=== PATIENT | female | born 1985 | race Caucasian/White ===

== ENCOUNTER 2019-03-05 20:25 | Emergency (ER) | payer BC ==
[2019-03-05] MEDS ORDERED: METHYLPREDNISOLONE 125 MG INJ ONE (21:11)
--- NOTE | 2019-03-05 21:15 | ER ---
Nurse's Notes [facility] Name: Roxy Umaña Age: 33 yrs Sex: Female : 1985 Arrival Date: 03/05/2019 Time: 20:29 Bed 18 Private MD: Diagnosis: Possible uveitis/iritis Presentation: 03/05 20:39 Presenting complaint: Patient states: "I got a sinus infection that went into my eye. I aj1 went to the eye doctor and they gave me steroid eye drops. It got worse so I went back to her and she put me on stronger eye drops and said if it didn't get better by tonight to come to the emergency room" Redness noted to bilateral sclera. Reports drainage from both eyes, blurred vision. Transition of care: patient was not received from another setting of care. Onset of symptoms was March 05, 2019. Risk Assessment: Do you want to hurt yourself or someone else? Patient reports no desire to harm self or others. Initial Sepsis Screen: Does the patient meet any 2 criteria? HR > 90 bpm. No. Patient's initial sepsis screen is negative. Does the patient have a suspected source of infection? Yes: Skin breakdown/wound. Care prior to arrival: None. 20:39 Method Of Arrival: Ambulatory aj1 20:39 Acuity: JULIANNA 3 aj1 Triage Assessment: 20:41 General: Appears in no apparent distress. comfortable, Behavior is calm, cooperative, aj1 appropriate for age. Pain: Complains of pain in right eye and left eye Pain currently is 4 out of 10 on a pain scale. Neuro: Level of Consciousness is awake, alert, obeys commands. Cardiovascular: Patient's skin is warm and dry. Respiratory: Airway is patent Respiratory effort is even, unlabored, Respiratory pattern is regular, symmetrical. 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 - Social history:: Smoking status: Patient/guardian denies using tobacco. - Ebola Screening: : Patient denies travel to an Ebola-affected area in the 21 days before illness onset. - Family history:: not pertinent. - Hospitalizations: : No recent hospitalization is reported. Screenin:06 Abuse screen: Denies threats or abuse. Denies injuries from another. Nutritional cc3 screening: No deficits noted. Tuberculosis screening: No symptoms or risk factors identified. Fall Risk Ambulatory Aid- None/Bed Rest/Nurse Assist (0 pts). Gait- Normal/Bed Rest/Wheelchair (0 pts) Mental Status- Oriented to own ability (0 pts). Assessment: 21:06 General: Appears in no apparent distress. uncomfortable, Behavior is calm, cooperative, cc3 appropriate for age. Pain: Complains of pain in left eye and right eye. Neuro: Level of Consciousness is awake, alert, obeys commands, Oriented to person, place, time, situation, Appropriate for age. Cardiovascular: Denies chest pain, Heart tones S1 S2 present Capillary refill < 3 seconds in bilateral fingers Patient's skin is warm and dry. Respiratory: Airway is patent Respiratory effort is even, unlabored, Respiratory pattern is regular, symmetrical, Breath sounds are clear bilaterally. GI: Abdomen is round non-distended, Bowel sounds present X 4 quads. Abd is soft and non tender X 4 quads. : No signs and/or symptoms were reported regarding the genitourinary system. EENT: Eyes are tearing on left eye and right eye Reports blurred vision in right eye and left eye since yesterday. Derm: Skin is intact, is healthy with good turgor, Skin is pink, warm \\T\\ dry. normal. Musculoskeletal: Circulation, motion, and sensation intact. Range of motion: intact in all extremities. 21:20 Reassessment: Patient appears in no apparent distress at this time. Patient and/or cc3 family updated on plan of care and expected duration. Pain level reassessed. Patient is alert, oriented x 3, equal unlabored respirations, skin warm/dry/pink. Dr. Jiménez discharged the patient home with prescription given. No IV cannula in situ. Patient left ER vitally stable and ambulatory with her . No valuables left in the patient's room. Patient states feeling better. Patient states symptoms have improved. Vital Signs: 20:41 BP 139 / 94; Pulse 88; Resp 18; Temp 98.2; Pulse Ox 96% on R/A; Weight 95.25 kg (R); aj1 Height 5 ft. 6 in. (167.64 cm) (R); Pain 4/10; 21:15 BP 126 / 89; Pulse 81; Resp 18 S; Pulse Ox 97% on R/A; cc3 20:41 Body Mass Index 33.89 (95.25 kg, 167.64 cm) aj1 ED Course: 20:29 Patient arrived in ED. es 20:40 Triage completed. aj1 20:41 Arm band placed on Patient placed in an exam room. aj1 20:48 Srinivasa Jiménez MD is Attending Physician. rn 21:06 Lily Torres is Primary Nurse. cc3 21:06 Patient has correct armband on for positive identification. Bed in low position. Call cc3 light in reach. Side rails up X2. Pulse ox on. NIBP on. 21:20 No provider procedures requiring assistance completed. Patient did not have IV access cc3 during this emergency room visit. Administered Medications: 21:10 Drug: SOLU-Medrol 125 mg Route: IM; Site: right gluteus; cc3 21:20 Follow up: Response: No adverse reaction cc3 Outcome: 21:15 Discharge ordered by . rn 21:20 Discharged to home ambulatory, with family. cc3 21:20 Condition: stable 21:20 Discharge instructions given to patient, family, Instructed on discharge instructions, follow up and referral plans. medication usage, Demonstrated understanding of instructions, follow-up care, medications, Prescriptions given X 1. 21:23 Patient left the ED. cc3 Signatures: Maria Fernanda Palencia RN RN [facility] Viviana Cain Roman, MD MD rn Cordel, Charlene cc3
--- NOTE | 2019-03-05 21:15 | EDPHYS ---
Physician Documentation [facility] Name: Roxy Umaña Age: 33 yrs Sex: Female : 1985 Arrival Date: 03/05/2019 Time: 20:29 Bed 18 Private MD: ED Physician Srinivasa Jiménez HPI: 03/05 21:06 This 33 yrs old Female presents to ER via Ambulatory with complaints of Eye rn Problem. 21:06 The patient is experiencing redness, tearing, The patient sustained None. to both eyes, rn caused by an unknown mechanism. Onset: The symptoms/episode began/occurred 3 day(s) ago. Duration: the symptoms are continuous. Aggravated by blinking, closing eye, rubbing. Associated signs and symptoms: Pertinent negatives: chills, ear ache, fever, headache, runny nose. Patient does not utilize any form of vision correction. Severity of symptoms: At their worst the symptoms were mild in the emergency department the symptoms are unchanged. The patient has not experienced similar symptoms in the past. The patient has been recently seen by a physician:. Reports seen 2 days ago and yesterday by eye doctor, told had internal inflammation, given steroid drops, seen at urgent care and given amoxicillin, reports felt like getting better then woke up from nap feeling face pressure and eyes back to where they were. NO trauma or eye injury, no contacts. Denies fever. Reports had full slit lamp examination and dilation.. 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 - Social history:: Smoking status: Patient/guardian denies using tobacco. - Ebola Screening: : Patient denies travel to an Ebola-affected area in the 21 days before illness onset. - Family history:: not pertinent. - Hospitalizations: : No recent hospitalization is reported. ROS: 21:06 Constitutional: Negative for fever, chills, and weight loss, Eyes: Negative for injury, rn + bilateral red eyes with clear drainage. ENT: Negative for injury, pain, and discharge, Neck: Negative for injury, pain, and swelling, Cardiovascular: Negative for chest pain, palpitations, and edema, Respiratory: Negative for shortness of breath, cough, wheezing, and pleuritic chest pain, Abdomen/GI: Negative for abdominal pain, nausea, vomiting, diarrhea, and constipation, MS/Extremity: Negative for injury and deformity, Skin: Negative for injury, rash, and discoloration, Neuro: Negative for headache, weakness, numbness, tingling, and seizure. Exam: 21:06 Constitutional: This is a well developed, well nourished patient who is awake, alert, rn and in no acute distress. Head/Face: Normocephalic, atraumatic. Eyes: Pupils equal round and reactive to light, extra-ocular motions intact. No pain eith EOM. No periorbital erythema/warmth/swelling. No hyphema, no hypopyon. + erythema of conjunctiva and sclera, clear drainage. ENT: MMM, no oral swelling or lesions. Neck: Trachea midline, no thyromegaly or masses palpated, and no cervical lymphadenopathy. Supple, full range of motion without nuchal rigidity, or vertebral point tenderness. No Meningismus. Skin: Warm, dry with normal turgor. Normal color with no rashes, no lesions, and no evidence of cellulitis. Neuro: Awake and alert, GCS 15. Cranial nerves II-XII grossly intact. Motor strength 5/5 in all extremities. Sensory grossly intact. Vital Signs: 20:41 BP 139 / 94; Pulse 88; Resp 18; Temp 98.2; Pulse Ox 96% on R/A; Weight 95.25 kg (R); aj1 Height 5 ft. 6 in. (167.64 cm) (R); Pain 4/10; 21:15 BP 126 / 89; Pulse 81; Resp 18 S; Pulse Ox 97% on R/A; cc3 20:41 Body Mass Index 33.89 (95.25 kg, 167.64 cm) aj1 MDM: 20:48 Patient medically screened. rn 21:10 Differential diagnosis: Acute iritis of iritis. Data reviewed: vital signs, nurses rn notes, and as a result, I will discharge patient. Counseling: I had a detailed discussion with the patient and/or guardian regarding: the historical points, exam findings, and any diagnostic results supporting the discharge/admit diagnosis, the need for outpatient follow up, to return to the emergency department if symptoms worsen or persist or if there are any questions or concerns that arise at home. Special discussion: I discussed with the patient/guardian in detail that at this point there is no indication for admission to the hospital. It is understood, however, that if the symptoms persist or worsen the patient needs to return immediately for re-evaluation. Based on the history and exam findings, there is no indication for further emergent testing or inpatient evaluation. I discussed with the patient/guardian the need to see the opthamologist for further evaluation of the symptoms. ED course: Has appt on Thursday for repeat exam. Is already on steroid drops, abx. Recommend afrin and will try coarse of oral steroids. . 21:18 ED course: Reports had fluorescein stain at eye doctor as well and told normal.. rn Administered Medications: 21:10 Drug: SOLU-Medrol 125 mg Route: IM; Site: right gluteus; cc3 21:20 Follow up: Response: No adverse reaction cc3 Disposition: 03/05/19 21:15 Discharged to Home. Impression: Possible uveitis/iritis. - Condition is Stable. - Discharge Instructions: Uveitis. - Prescriptions for Medrol (Emmanuel) 4 mg Oral Tablets, Dose Pack - take 1 tablet by ORAL route as directed - follow package instructions; 1 packet. - Medication Reconciliation Form, Thank You Letter, Antibiotic Education, Prescription Opioid Use form. - Follow up: Private Physician; When: As needed; Reason: Recheck today's complaints, Re-evaluation by your physician. - Problem is new. - Symptoms have improved. Signatures: Maria Fernanda Palencia RN RN aj1 Srinivasa Jiménez MD MD rn Cordel, Charlene cc3 Corrections: (The following items were deleted from the chart) 21:23 21:15 03/05/2019 21:15 Discharged to Home. Impression: Possible uveitis/iritis. cc3 Condition is Stable. Forms are Medication Reconciliation Form, Thank You Letter, Antibiotic Education, Prescription Opioid Use. Follow up: Private Physician; When: As needed; Reason: Recheck today's complaints, Re-evaluation by your physician. Problem is new. Symptoms have improved. rn
[2019-03-05 21:52] VITALS: BP 139/94; TEMP 98.2; O2SAT 96
== END 2019-03-05 21:23 | disposition home or self-care (01) ==
LOC: ER 20:25
DX: H57.89 Other specified disorders of eye and adnexa (principal); Z91.048 Other nonmedicinal substance allergy status
CPT/HCPCS: 96372; 99283; J2930

== ENCOUNTER 2020-11-07 20:56 | Emergency (ER) | payer BC, SELFPAY ==
--- OUTSIDE RECORDS SUMMARY | 2020-11-07 20:59 | XMS REPORT | Continuity of Care Document ---
:1985 Author Organization [facility] t Address [address] [place] [address] Dr. Nguyen [address] [place] [id number] Care Team Providers Name Role Phone Unavailable Unavailable Unavailable Problems This patient has no known problems. Allergies, Adverse Reactions, Alerts This patient has no known allergies or adverse reactions. Medications This patient has no known medications. Procedures This patient has no known procedures. Results This patient has no known results.
[2020-11-07] MEDS ORDERED: HYDROCODONE/APAP 7.5/325 MG TAB ONE (22:57)
[2020-11-07] MEDS ORDERED: IBUPROFEN 400 MG TAB ONE (22:57)
--- NOTE | 2020-11-07 23:08 | ER ---
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 Coronavirus screen: Client denies travel out of the [place] in the last 14 days. At this time, the client does not indicate any symptoms associated with coronavirus-19. Ebola Screen: Patient negative for fever greater than or equal to 101.5 degrees Fahrenheit, and additional compatible Ebola Virus Disease symptoms Patient denies exposure to infectious person. Patient denies travel to an Ebola-affected area in the 21 days before illness onset. No symptoms or risks identified at this time. Initial Sepsis Screen: Does the patient meet any 2 criteria? No. Patient's initial sepsis screen is negative. Does the patient have a suspected source of infection? No. Patient's initial sepsis screen is negative. Risk Assessment: Do you want to hurt yourself or someone else? Patient reports no desire to harm self or others. Onset of symptoms was November 07, 2020. 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 Flu vaccine is not up to date. - Social history:: Smoking status: Patient/guardian denies using tobacco, the patient reports quitting approximately 13 years ago. Screenin:10 Abuse screen: Denies threats or abuse. Nutritional screening: No deficits noted. em Tuberculosis screening: No symptoms or risk factors identified. Fall Risk None identified. Assessment: 22:30 General: Appears in no apparent distress. uncomfortable, Behavior is calm, cooperative, em appropriate for age. Pain: Complains of pain in right knee Pain currently is 6 out of 10 on a pain scale. Neuro: Level of Consciousness is awake, alert, obeys commands, Oriented to person, place, time, situation. Cardiovascular: Capillary refill < 3 seconds Patient's skin is warm and dry. Respiratory: Airway is patent Respiratory effort is even, unlabored, Respiratory pattern is regular, symmetrical. Derm: Skin is intact, is healthy with good turgor, Skin is pink, warm \T\ dry. Musculoskeletal: Capillary refill < 3 seconds, Range of motion: limited in right knee Swelling present in right knee. Vital Signs: 21:18 BP 106 / 67; Pulse 84; Resp 16; Temp 97.8(TE); Pulse Ox 99% on R/A; Weight 97.07 kg ca1 (R); Height 5 ft. 6 in. (167.64 cm) (R); Pain 8/10; 21:18 Body Mass Index 34.54 (97.07 kg, 167.64 cm) ca1 ED Course: 20:59 Patient arrived in ED. es 21:19 Triage completed. ca1 21:20 Arm band placed on right wrist. ca1 22:03 Adarsh Rader PA is PHCP. cp 22:03 Srinivasa Jiménez MD is Attending Physician. cp 22:08 Moshe Baig, RN is Primary Nurse. em 22:10 Patient has correct armband on for positive identification. em 22:51 Knee Right 3 View XRAY In Process Unspecified. EDMS 23:06 Juanjo Herrera MD is Referral Physician. cp 23:40 Orthoglass splint: Posterior long leg splint applied on right leg. em 23:51 No provider procedures requiring assistance completed. Patient did not have IV access em during this emergency room visit. Administered Medications: 22:42 Drug: Ibuprofen 800 mg Route: PO; em 23:50 Follow up: Response: No adverse reaction; Marked relief of symptoms; Pain is decreased em 22:42 Drug: Hydrocodone-Acetaminophen (7.5 mg-325 mg) 1 tabs Route: PO; em 23:50 Follow up: Response: No adverse reaction; Marked relief of symptoms; Pain is decreased em Outcome: 23:07 Discharge ordered by . cp 23:52 Discharged to home via wheelchair, with family. em 23:52 Condition: good 23:52 Discharge instructions given to patient, family, Instructed on discharge instructions, follow up and referral plans. medication usage, crutch walking, Demonstrated understanding of instructions, follow-up care, medications, crutch walking, splint care, Prescriptions given X 2. 23:52 Patient left the ED. em Signatures: Dispatcher [employer] Viviana Rivera Edgar, RN RN em Adarsh Rader PA PA cp Acob, Cheryl, RN RN ca1
--- NOTE | 2020-11-07 23:08 | EDPHYS ---
Physician Documentation [facility] Name: Roxy Umaña Age: 35 yrs Sex: Female : 1985 Arrival Date: 11/07/2020 Time: 20:59 Bed 27 Private MD: ED Physician Srinivasa Jiménez HPI: 11/07 22:15 This 35 yrs old Female presents to ER via Wheelchair with complaints of Knee cp Injury. 22:15 The patient presents with an injury, pain, that is acute. cp 22:15 The complaints affect the right knee. Context: resulted from twisting of the extremity, cp while jumping on trampoline, the patient is able to ambulate, with moderate difficulty. Onset: The symptoms/episode began/occurred just prior to arrival. Associated signs and symptoms: Pertinent negatives calf tenderness, numbness. Treatment prior to arrival includes: icing the affected extremity. 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 Flu vaccine is not up to date. - Social history:: Smoking status: Patient/guardian denies using tobacco, the patient reports quitting approximately 13 years ago. ROS: 22:20 MS/extremity: Positive for pain, tenderness, of the right knee, injury, Negative for cp decreased range of motion, deformity. 22:20 Constitutional: Negative for body aches, chills, fever. cp 22:20 Neck: Negative for pain with movement, pain at rest. 22:20 Back: Negative for pain at rest, pain with movement. 22:20 Neuro: Negative for headache, numbness. 22:20 All other systems are negative. Exam: 22:25 Constitutional: The patient appears in no acute distress, alert, awake, non-toxic, well cp developed, well nourished. 22:25 Head/Face: Normocephalic, atraumatic. cp 22:25 Neck: ROM/movement: is normal, is supple, without pain, no range of motions limitations. 22:25 Back: pain, is absent, ROM is normal. 22:25 Musculoskeletal/extremity: Extremities: grossly normal except: noted in the right knee: tenderness, There is no evidence of decreased ROM, deformity, ROM: limited passive range of motion due to pain, in the right knee, Perfusion: the extremity is normally perfused throughout, Sensation intact. Vital Signs: 21:18 BP 106 / 67; Pulse 84; Resp 16; Temp 97.8(TE); Pulse Ox 99% on R/A; Weight 97.07 kg ca1 (R); Height 5 ft. 6 in. (167.64 cm) (R); Pain 8/10; 21:18 Body Mass Index 34.54 (97.07 kg, 167.64 cm) ca1 MDM: 22:07 Patient medically screened. cp 23:00 Differential diagnosis: dislocation, closed fracture, sprain, ligament injury, meniscus cp tear. 23:05 Data reviewed: vital signs, nurses notes, radiologic studies, plain films. Test cp interpretation: by ED physician or midlevel provider: xrays of right knee negative for fracture. Counseling: I had a detailed discussion with the patient and/or guardian regarding: the historical points, exam findings, and any diagnostic results supporting the discharge/admit diagnosis, radiology results, the need for outpatient follow up, for definitive care, a orthopedic surgeon, to return to the emergency department if symptoms worsen or persist or if there are any questions or concerns that arise at home. 11/07 21:21 Order name: Knee Right 3 View XRAY ca1 11/07 22:30 Order name: Knee Immobilizer; Complete Time: 23:53 cp Administered Medications: 22:42 Drug: Ibuprofen 800 mg Route: PO; em 23:50 Follow up: Response: No adverse reaction; Marked relief of symptoms; Pain is decreased em 22:42 Drug: Hydrocodone-Acetaminophen (7.5 mg-325 mg) 1 tabs Route: PO; em 23:50 Follow up: Response: No adverse reaction; Marked relief of symptoms; Pain is decreased em Disposition: 23:15 Chart complete. cp 11/08 06:46 Co-signature as Attending Physician, Srinivasa Jiménez MD. rn Disposition Summary: 11/07/20 23:07 Discharge Ordered Location: Home cp Problem: new cp Symptoms: have improved cp Condition: Stable cp Diagnosis - Sprain of unspecified site of right knee cp Followup: cp - With: Juanjo Herrera MD - When: 2 - 3 days - Reason: Recheck today's complaints Discharge Instructions: - Discharge Summary Sheet cp - How to Use a Knee Immobilizer cp - Knee Sprain, Adult cp Forms: - Medication Reconciliation Form cp - Thank You Letter cp - Antibiotic Education cp - Prescription Opioid Use cp Prescriptions: - Naprosyn 500 mg Oral Tablet - take 1 tablet by ORAL route 2 times per day take with food; 20 tablet; Refills: cp 0, Product Selection Permitted - Tramadol 50 mg Oral Tablet - take 1 tablet by ORAL route every 8 hours as needed; 12 tablet; Refills: 0, cp Product Selection Permitted Signatures: Dispatcher [employer] Moshe Sanabria, RN RN Srinivasa Gómez MD MD rn Page, Corey, PA PA cp Hailey Alicea RN RN ca1
[2020-11-08 00:36] VITALS: BP 106/67; TEMP 97.8; O2SAT 99
--- NOTE | 2020-11-08 07:25 | RAD REPORT ---
EXAM DESCRIPTION: RAD - Knee Right 3 View - 11/07/2020 10:51 pm CLINICAL HISTORY: PAIN COMPARISON: No comparisons FINDINGS: The effusion is present. There is likely a fat fluid level. Question fracture from the pos terolateral aspect of the lateral tibial plateau only seen on the lateral. IMPRESSION: Knee effusion with possible proximal tibial fracture. Consider nonemergent MRI to evalua te for internal derangement as well as confirmation of the fracture.
== END 2020-11-07 23:52 | disposition home or self-care (01) ==
LOC: ER 20:56
DX: S83.91XA Sprain of unspecified site of right knee, initial encounter (principal); X50.1XXA Overexertion from prolonged static or awkward postures, initial encounter; Y93.44 Activity, trampolining; Z88.1 Allergy status to other antibiotic agents; Z91.048 Other nonmedicinal substance allergy status
CPT/HCPCS: 99284

== ENCOUNTER 2023-12-08 00:35 | Inpatient (IN) | payer SELFPAY ==
[2023-12-08] MEDS ORDERED: ONDANSETRON 4 MG/2 ML VIAL ONE (01:24)
[2023-12-08] MEDS ORDERED: FENTANYL CITR 100 MCG/2 ML ONE (01:24)
[2023-12-08] MEDS ORDERED: NA CHLORIDE 0.9% 1,000 ML ONE ×2 (01:25→05:16)
[2023-12-08 01:37] LABS: Specific Gravity 1.011 (1.005-1.030); Sqamous Epithelial <5 /HPF (None Seen); Urine Bacteria <20 /HPF (<20); Urine Bilirubin NEGATIVE (Negative); Urine Blood 2+ (Negative); Urine Clarity Turbid (Clear); Urine Color Colorless (Yellow); Urine Culture Reflex Order REFLEXED; Urine Glucose NEGATIVE (Negative); Urine Ketones NEGATIVE (Negative); Urine Microscopic Reflex YN ORDER UMIC; Urine Mucus Slight /HPF (None Seen); Urine Nitrite NEGATIVE (Negative); Urine Protein TRACE (Negative); Urine Urobilinogen Normal (Normal); Urine WBC 20-50 /HPF (<5); Urine WBC Clump Rare /HPF (None Seen)
[2023-12-08 01:40] LABS: Absolute Eosinophils 0.2 K/uL (0-0.5); Absolute Lymphocytes (CBC) 0.7 K/uL (0.7-4.9); Absolute Monocytes 0.2 K/uL (0.1-1.3); Absolute Neutrophil 12.2 K/uL (1.8-8.0); Basophils % 0.1 % (0-1.3); Eosinophils % 1.2 % (0-4.4); Hematocrit 38.3 % (36.0-45.0); Lymphocytes % 5.4 % (15.3-44.8); MCH 30.7 pg (27.0-35.0); MCHC 33.9 g/dL (32.0-36.0); MCV 90.6 fL (80-100); MPV 9.6 fL (7.6-11.3); Monocytes % 1.2 % (3.3-12.3); Neutrophils % 92.1 % (41.7-73.7); Platelets 260 thou/uL (152-406); RBC Red Blood Cell Count 4.23 M/uL (3.86-4.86); Red Cell Distribution Width 14.2 % (12.1-15.2)
[2023-12-08 01:47] LABS: ALT/SGPT 19 U/L (13-56); Albumin 3.5 g/dL (3.4-5.0); Albumin/Globulin Ratio 0.9 (1.1-1.8); Alkaline Phosphatase 92 U/L (45-117); Anion Gap 6.7 mEq/L (5.0-15.0); BUN Blood Urea Nitrogen 16 mg/dL (7-18); Bicarbonate 28 mEq/L (21-32); Bilirubin Total 1.1 mg/dL (0.2-1.0); Glomerular Filtration Rate 54 ml/min (=/>90); Glucose Level 102 mg/dL (74-106); Potassium 3.7 mEq/L (3.5-5.1); Protein, Total 7.5 g/dL (6.4-8.2); Sodium Level 137 mEq/L (136-145)
[2023-12-08 01:51] LABS: AST/SGOT < 10 U/L (15-37)
[2023-12-08] MEDS ORDERED: MORPHINE 4 MG/ML SYR ONE (03:41)
[2023-12-08] MEDS ORDERED: Levofloxacin 750mg IV 750 MG/150 ML BAG IV ONE (03:42)
--- NOTE | 2023-12-08 03:46 | EDPHYS ---
Physician Documentation [facility] Name: Roxy Umaña Age: 38 yrs Sex: Female : 1985 Arrival Date: 12/08/2023 Time: 00:35 Bed 15 Private MD: ED Physician Miguel Alicea HPI: 12/07 00:51 This 38 yrs old Female presents to ER via Unassigned with complaints of Pain With kb Urination, Fever. 00:51 Pt is a 38 year old female who presents for bilateral flank pain that started 3 days kb ago. States she has had urinary frequency for 4 days. Was seen and diagnosed with a UTI this morning, started on Bactrim. States the pain has gotten worse and now causing nausea. Reports chills. . 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 - Infectious Disease History:: Denies. - Social history:: Smoking status: Reported history of juuling and/or vaping. ROS: 00:51 Constitutional: As per HPI kb Exam: 00:51 Constitutional: This is a well developed, well nourished patient who is awake, alert, kb and in no acute distress. Head/Face: Normocephalic, atraumatic. ENT: Moist Mucous membranes Cardiovascular: Regular rate Respiratory: Respirations even and unlabored. No increased work of breathing. Talking in full sentences Abdomen/GI: Soft, non-tender. No distention Skin: Warm, dry with normal turgor. Normal color. MS/ Extremity: Pulses equal, no cyanosis. Neurovascular intact. Full, normal range of motion. Neuro: Awake and alert, GCS 15, oriented to person, place, time, and situation. Moves all extremities. Normal gait. 00:54 Back: CVA tenderness, that is moderate, is noted bilaterally, kb 04:08 ECG was reviewed by the Attending Physician. rt Vital Signs: 01:00 BP 125 / 73; Pulse 100; Resp 18; Pulse Ox 100% on R/A; al5 01:06 BP 122 / 66; Pulse 104; Resp 18; Temp 99.3; Pulse Ox 100% on R/A; Weight 86.18 kg; al5 Height 5 ft. 7 in. ; Pain 9/10; 01:15 BP 107 / 68; Pulse 101; Resp 18; Pulse Ox 100% ; al5 01:30 BP 116 / 62; Pulse 101; Resp 18; Pulse Ox 99% on R/A; al5 02:00 BP 115 / 49; Pulse 100; Resp 18; Pulse Ox 100% on R/A; al5 02:30 BP 140 / 72; Pulse 98; Resp 18; Pulse Ox 98% on R/A; al5 03:00 BP 126 / 72; Pulse 95; Resp 18; Pulse Ox 96% on R/A; al5 03:30 BP 110 / 67; Pulse 84; Resp 18; Pulse Ox 97% on R/A; al5 04:00 BP 116 / 63; Pulse 86; Resp 18; Pulse Ox 96% on R/A; al5 01:06 Body Mass Index 29.76 (86.18 kg, 170.18 cm) al5 01:06 Pain Scale: Adult al5 MDM: 00:45 Patient medically screened. kb 00:54 Data reviewed: vital signs, nurses notes. kb 01:29 Transition of care: After a detail discussion of the patient's case, care is kb transferred to Miguel Alicea MD. 04:08 Differential diagnosis: UTI. Consideration of Admission/Observation Patient was rt admitted/placed on observation. Management of patient was discussed with the following: Hospitalist: Agrees to admit. I considered the following discharge prescriptions or medication management in the emergency department Medications were administered in the Emergency Department. See MAR. Independent interpretation of the following test(s) in the Emergency Department CT Scan: My interpretation is No ureteral stone seen on my interpretation of CT scan images. 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 Response to treatment: the patient's symptoms have markedly improved after treatment. ED course: Patient met SIRS criteria with leukocytosis, this accounts for delay of blood cultures, IV antibiotics.. 12/07 00:44 Order name: Test, Urine; Complete Time: 02:22 kb 12/07 00:44 Order name: Urinalysis w/ reflexes; Complete Time: 02:22 kb 12/07 00:55 Order name: CBC with Diff; Complete Time: 13:07 kb 12/07 00:55 Order name: CMP; Complete Time: 02:22 kb 12/07 01:47 Order name: Manual Differential; Complete Time: 13:07 EDMS 12/07 01:55 Order name: Urine Culture EDMS 12/07 02:58 Order name: Blood Culture Adult (2) rt 12/07 02:58 Order name: Lactate w/ 2H reflex if indic.; Complete Time: 13:07 rt 12/07 02:58 Order name: Protime (+inr); Complete Time: 13:07 rt 12/07 02:58 Order name: Ptt, Activated; Complete Time: 13:07 rt 12/07 04:17 Order name: Urinalysis w/ reflexes EDMS 12/07 04:17 Order name: CBC with Automated Diff EDMS 12/07 04:17 Order name: CBC with Automated Diff EDMS 12/07 04:17 Order name: Comprehensive Metabolic Panel EDMS 12/07 04:17 Order name: Comprehensive Metabolic Panel EDMS 12/07 13:11 Order name: CBC with Automated Diff EDMS 12/07 13:17 Order name: Basic Metabolic Panel EDMS 12/07 01:23 Order name: CT Abd/Pelvis - Without Contrast kb 12/07 08:51 Order name: US; Complete Time: 13:07 EDMS 12/07 02:58 Order name: EKG; Complete Time: 02:58 rt 12/07 00:55 Order name: IV Saline Lock; Complete Time: 01:38 kb 12/07 00:55 Order name: Labs collected and sent; Complete Time: 01:38 kb 12/07 02:58 Order name: Accucheck; Complete Time: 04:00 rt 12/07 02:58 Order name: Cardiac monitoring; Complete Time: 02:59 rt 12/07 02:58 Order name: EKG - Nurse/Tech; Complete Time: 03:17 rt 12/07 02:58 Order name: IV Saline Lock - Large Bore; Complete Time: 02:59 rt 12/07 02:58 Order name: O2 Per Protocol; Complete Time: 02:59 rt 08/20 02:58 Order name: O2 Sat Monitoring; Complete Time: :59 rt 12/07 02:58 Order name: Vital Signs; Complete Time: :59 rt EC:08 Rate is 91 beats/min. Rhythm is regular, Normal Sinus Rhythm with No ectopy. QRS Raven rt is Normal. NV interval is normal. QRS interval is normal. QT interval is normal. No Q waves. T waves are Normal. No ST changes noted. Interpreted by me. Administered Medications: 01:39 Drug: NS 0.9% IV 1000 ml IV at 1 bolus Per protocol; 1000 mL bolus Route: IV; Rate: 1 al5 bolus; Site: right antecubital; 03:24 Follow up: Response: No adverse reaction; IV Status: Completed infusion; IV Intake: al5 1000ml 01:39 Drug: Ondansetron IVP 4 mg IVP once; over 2 minutes Route: IVP; Site: right antecubital;al5 02:37 Follow up: Response: No adverse reaction; Nausea is decreased al5 01:40 Drug: fentaNYL (PF) IVP 25 mcg IVP once Route: IVP; Site: right antecubital; al5 02:37 Follow up: Response: No adverse reaction; Pain is decreased al5 03:59 Drug: LevaQUIN IVPB 750 mg IVPB once Route: IVPB; Site: right antecubital; al5 05:00 Follow up: Response: No adverse reaction; IV Status: Completed infusion; IV Intake: al5 150ml 03:59 Drug: morphine IVP or IV 4 mg IVP once over 4 mins Route: IVP; Infused Over: 4 mins; al5 Site: right antecubital; 04:50 Follow up: Response: No adverse reaction; Pain is decreased al5 Disposition: 04:08 Co-signature as Attending Physician, Miguel Alicea MD I reviewed the patient's care rt provided by Advanced Practice Provider \T\ agree w/ the diagnosis \T\ care plan. I personally saw the pt \T\ performed a substantive portion of the visit, incldng all aspects of the (History/Exam/Medical Decision Making). Disposition Summary: 12/08/23 03:46 Hospitalization Ordered Notes: Hospitalization Status: Inpatient Admission(12/08/23 03:46) rt Provider: Jag Madrid(12/08/23 03:46) rt Condition: Stable(12/08/23 03:46) rt Problem: new(12/08/23 03:46) rt Symptoms: have improved(12/08/23 03:46) rt Bed/Room Type: Standard(12/08/23 03:46) rt Location: [facility] ER HOLD(12/08/23 03:54) cg Room Assignment: ERHOLD-(12/08/23 03:54) cg Diagnosis - UTI/ Urinary tract infection, site not specified rt - Sepsis, unspecified organism rt Discharge Instructions: - Discharge Summary Sheet al5 Forms: - Medication Reconciliation Form rt - SBAR form rt - Leadership Thank You Letter rt - Family Work Release al5 Signatures: Dispatcher [employer] Kalyn Dunbar FNP-C FNP-Ckb Garcia, Cindy, RN RN cg Kriss Rinaldi PA-C PA-C sb4 Miguel Alicea MD MD rt Minerva Jiménez RN RN al5 Corrections: (The following items were deleted from the chart) 00:54 00:51 Constitutional: This is a well developed, well nourished patient who is awake, kb alert, and in no acute distress. Head/Face: Normocephalic, atraumatic. ENT: Moist Mucous membranes Cardiovascular: Regular rate Respiratory: Respirations even and unlabored. No increased work of breathing. Talking in full sentences Skin: Warm, dry with normal turgor. Normal color. MS/ Extremity: Pulses equal, no cyanosis. Neurovascular intact. Full, normal range of motion. Neuro: Awake and alert, GCS 15, oriented to person, place, time, and situation. Moves all extremities. Normal gait. kb 01:28 00:55 Abdomen Pelvis W Con+CT.RAD.BRZ ordered. EDMS EDMS 02:58 02:58 BLOOD CULTURE*+BA.LAB.BRZ ordered. EDMS EDMS 02:58 02:58 LACTATE+C.LAB.BRZ ordered. EDMS EDMS 02:58 02:58 PROTIME (+INR)+COAG.LAB.BRZ ordered. EDMS EDMS 02:58 02:58 PTT, ACTIVATED+COAG.LAB.BRZ ordered. EDMS EDMS 03:37 03:37 Inpatient Admission rt rt 03:37 03:37 Jag Madrid rt rt 03:37 03:37 Telemetry/MedSurg (Inpatient) rt rt 03:37 03:37 Fair rt rt 03:37 03:37 new rt rt 03:37 03:37 have improved rt rt 03:37 03:37 Standard rt rt 03:37 03:37 rt rt 03:37 03:37 Subsequent non-ST elevation (NSTEMI) myocardial infarction rt rt 03:54 03:46 Telemetry/MedSurg (Inpatient) rt cg 03:54 03:46 rt cg
--- NOTE | 2023-12-08 03:46 | ER ---
Nurse's Notes [facility] Name: Roxy Umaña Age: 38 yrs Sex: Female : 1985 Arrival Date: 12/08/2023 Time: 00:35 Bed 15 Private MD: Diagnosis: UTI/ Urinary tract infection, site not specified;Sepsis, unspecified organism Presentation: 12/07 01:06 Chief complaint: Patient states: c/o back tenderness, painful urination, and urinary al5 frequency since Thursday. went to urgent care on Thursday and was given a shot for the pain and sent home with bactrim. patient has had no relief of symptoms. Coronavirus screen: At this time, the client does not indicate any symptoms associated with coronavirus-19. Ebola Screen: No symptoms or risks identified at this time. Initial Sepsis Screen: Does the patient meet any 2 criteria? HR > 90 bpm. No. Patient's initial sepsis screen is negative. Does the patient have a suspected source of infection? No. Patient's initial sepsis screen is negative. Risk Assessment: Do you want to hurt yourself or someone else? Patient reports no desire to harm self or others. Onset of symptoms was December 04, 2023. 01:06 Method Of Arrival: Ambulatory al5 01:06 Acuity: JULIANNA 3 al5 Triage Assessment: 01:07 General: Appears in no apparent distress. uncomfortable, Behavior is calm, cooperative. al5 Pain: Complains of pain in back Pain currently is 9 out of 10 on a pain scale. EENT: No signs and/or symptoms were reported regarding the EENT system. Neuro: Level of Consciousness is awake, alert, obeys commands, Oriented to person, place, time, situation. Cardiovascular: Patient's skin is warm and dry. Respiratory: Airway is patent Respiratory effort is even, unlabored, Respiratory pattern is regular, symmetrical. GI: Abdomen is flat, non-distended. : Reports pain in bilateral flank(s), since thursday with urination, Pain is 9 out of 10 on a pain scale. urgency. Derm: Skin is intact, Skin is pink, warm \\T\\ dry. normal. Musculoskeletal: No signs and/or symptoms reported regarding the musculoskeletal system. 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 - Infectious Disease History:: Denies. - Social history:: Smoking status: Reported history of juuling and/or vaping. Screenin:10 [facility] ED Fall Risk Assessment (Adult) History of falling in the last 3 months, al5 including since admission No falls in past 3 months (0 pts) Confusion or Disorientation No (0 pts) Intoxicated or Sedated No (0 pts) Impaired Gait No (0 pts) Mobility Assist Device Used No (0 pt) Altered Elimination No (0 pt) Score/Fall Risk Level 0 - 2 = Low Risk Oriented to surroundings, Maintained a safe environment, Hourly rounding (assess needs \\T\\ fall precautionary measures) done. Abuse screen: Denies threats or abuse. Denies injuries from another. Nutritional screening: No deficits noted. Tuberculosis screening: No symptoms or risk factors identified. Assessment: 01:09 Reassessment: see triage assessment. al5 01:58 Reassessment: Patient appears in no apparent distress at this time. No changes from al5 previously documented assessment. Patient and/or family updated on plan of care and expected duration. Pain level reassessed. Patient is alert, oriented x 3, equal unlabored respirations, skin warm/dry/pink. 02:58 Reassessment: Patient appears in no apparent distress at this time. Patient and/or al5 family updated on plan of care and expected duration. Pain level reassessed. Patient is alert, oriented x 3, equal unlabored respirations, skin warm/dry/pink. Patient states feeling better. 04:01 Reassessment: Patient appears in no apparent distress at this time. No changes from al5 previously documented assessment. Patient and/or family updated on plan of care and expected duration. Pain level reassessed. Patient is alert, oriented x 3, equal unlabored respirations, skin warm/dry/pink. patient admitted to hospital, see [facility] for vitals and assessments. Vital Signs: 01:00 BP 125 / 73; Pulse 100; Resp 18; Pulse Ox 100% on R/A; al5 01:06 BP 122 / 66; Pulse 104; Resp 18; Temp 99.3; Pulse Ox 100% on R/A; Weight 86.18 kg; al5 Height 5 ft. 7 in. ; Pain 9/10; 01:15 BP 107 / 68; Pulse 101; Resp 18; Pulse Ox 100% ; al5 01:30 BP 116 / 62; Pulse 101; Resp 18; Pulse Ox 99% on R/A; al5 02:00 BP 115 / 49; Pulse 100; Resp 18; Pulse Ox 100% on R/A; al5 02:30 BP 140 / 72; Pulse 98; Resp 18; Pulse Ox 98% on R/A; al5 03:00 BP 126 / 72; Pulse 95; Resp 18; Pulse Ox 96% on R/A; al5 03:30 BP 110 / 67; Pulse 84; Resp 18; Pulse Ox 97% on R/A; al5 04:00 BP 116 / 63; Pulse 86; Resp 18; Pulse Ox 96% on R/A; al5 01:06 Body Mass Index 29.76 (86.18 kg, 170.18 cm) al5 01:06 Pain Scale: Adult al5 ED Course: 00:40 Patient arrived in ED. gm2 00:45 Kalyn Gomez FNP-C is PHCP. kb 00:45 Miguel Alicea MD is Attending Physician. kb 00:55 Minerva Jiménez, ASA is Primary Nurse. al5 01:07 Triage completed. al5 01:07 Arm band placed on right wrist. Patient placed in an exam room, on a stretcher. al5 01:10 Patient has correct armband on for positive identification. Bed in low position. Call al5 light in reach. Side rails up X 1. Provided Education on: processes and procedures. 01:10 No provider procedures requiring assistance completed. al5 01:40 CBC with Diff Sent. al5 01:40 CMP Sent. al5 01:58 CT Abd/Pelvis - Without Contrast In Process Unspecified. EDMS 03:05 Patient admitted, IV remains in place. al5 03:17 Ptt, Activated Sent. al5 03:17 Protime (+inr) Sent. al5 03:17 Lactate w/ 2H reflex if indic. Sent. al5 03:36 Jag Madrid MD is Hospitalizing Provider. rt 03:46 Jag Madrid MD is Hospitalizing Provider. rt 10:38 Urinalysis w/ reflexes Sent. dd2 12:40 CM met with patient and at the bedside in the ED exam room. Patient identified ane by name and . Demographic sheet adjusted, insurance read "Uninsured", patient provided insurance card through [employer]. CM presented insurance card to [employer]. Insurance showing inactive, CM returned card to patient and . Patient's named James, explained he is a new employee and just got his family covered. He discovered that during the enrollment process, somehow his was left off. CM encouraged him to reach out to [employer] insurance. Patient, and two children live in a single story home. Prior to admission, patient performs ADLs independently without physical limitations. No DME, HH, home oxygen or medical services at this time. No MPOA in place at this time. CM will continue to follow and coordinate care. 15:30 IV discontinued, intact, bleeding controlled, No redness/swelling at site. Pressure dd2 dressing applied. Administered Medications: 01:39 Drug: NS 0.9% IV 1000 ml IV at 1 bolus Per protocol; 1000 mL bolus Route: IV; Rate: 1 al5 bolus; Site: right antecubital; 03:24 Follow up: Response: No adverse reaction; IV Status: Completed infusion; IV Intake: al5 1000ml 01:39 Drug: Ondansetron IVP 4 mg IVP once; over 2 minutes Route: IVP; Site: right antecubital;al5 02:37 Follow up: Response: No adverse reaction; Nausea is decreased al5 01:40 Drug: fentaNYL (PF) IVP 25 mcg IVP once Route: IVP; Site: right antecubital; al5 02:37 Follow up: Response: No adverse reaction; Pain is decreased al5 03:59 Drug: LevaQUIN IVPB 750 mg IVPB once Route: IVPB; Site: right antecubital; al5 05:00 Follow up: Response: No adverse reaction; IV Status: Completed infusion; IV Intake: al5 150ml 03:59 Drug: morphine IVP or IV 4 mg IVP once over 4 mins Route: IVP; Infused Over: 4 mins; al5 Site: right antecubital; 04:50 Follow up: Response: No adverse reaction; Pain is decreased al5 Medication: 01:10 VIS not applicable for this client. al5 Intake: 03:24 IV: 1000ml; Total: 1000ml. al5 05:00 IV: 150ml; Total: 1150ml. al5 Outcome: 03:05 Admitted to ER Hold. Please see [facility] for further documentation. al5 03:05 Condition: good al5 03:05 Instructed on the need for admit, 03:37 Decision to Hospitalize by Provider. rt 03:46 Decision to Hospitalize by Provider. rt 15:37 Patient left the ED. dd2 Signatures: Dispatcher [employer] EDMS Kalyn Gomez, CARINE-Nancy GREENS LABORER-CkMiguel Manzanares MD MD rt Bushra Meraz gm2 Minerva Jiménez RN RN al5 Tere Lorenzo RN RN ane DAVIS, DIANA, RN RN dd2 Corrections: (The following items were deleted from the chart) 01:39 01:37 Ondansetron IVP 4 mg IVP in right hand al5 al5 01:39 01:38 NS 0.9% IV 1000 ml IV at 1 bolus in right hand al5 al5 01:40 01:38 fentaNYL (PF) IVP 25 mcg IVP in right hand al5 al5
[2023-12-08] MEDS ORDERED: ACETAMINOPHEN 325 MG TABLET PO PRN (04:12)
[2023-12-08] MEDS ORDERED: ONDANSETRON 4 MG/2 ML VIAL IV PRN (04:12)
--- NOTE | 2023-12-08 04:12 | P.HP ---
Certification for Inpatient Patient admitted to: Inpatient With expected LOS: >2 Midnights Practitioner: I am a practitioner with admitting privileges, knowledge of patient current condition, hospital course, and medical plan of care. Services: Services provided to patient in accordance with Admission requirements found in Title 42 Section 412.3 of the Code of Federal Regulations Patient History Date of Service: 12/08/23 Reason for admission: Fever History of Present Illness: 38 yrs old Female with no significant past medical history came to ER with generalized weakness and frequency of micturition associated with dysuria and fever which has been going on for the last 3 days and has been progressively getting worse. She was diagnosed with UTI this morning and was started on Bactrim without much relief. She started having nausea and associated with some chills. Complains of bilateral flank pain worse on the right side. No similar illnesses in the past. Has history of UTIs. Patient was assessed in the ER and was admitted for further management of possible pyelonephritis with sepsis Allergies cefaclor [From Ceclor] Allergy (Verified 12/08/23 04:57) Hives/Rash iodine Allergy (Verified 12/08/23 04:57) Nausea/Vomiting Home Medications: NK [No Home Meds] 12/08/23 - Past Medical/Surgical History Past Medical History: Reviewed- Non-Contributory Past Surgical History: Reviewed- Non-Contributory - Family History Family History: Reviewed- Non-Contributory - Social History Smoking Status: Never smoker Review of Systems 10-point ROS is otherwise unremarkable Physical Examination - Vital Signs Temperature: 99.2 F Blood Pressure: 122/78 Pulse: 90 Respirations: 18 Pulse Ox (%): 95 - Physical Exam General: Alert, Oriented x3, Mild distress HEENT: Atraumatic, Normocephalic Neck: Supple, 2+ carotid pulse no bruit Respiratory: Clear to auscultation bilaterally, Normal air movement Cardiovascular: Normal pulses, Regular rate/rhythm, Normal S1 S2 Capillary refill: <2 Seconds Gastrointestinal: Soft and benign, W/out hepatosplenomegaly Musculoskeletal: No clubbing, No swelling Integumentary: No rashes, No significant lesion Neurological: Normal speech, Normal strength at 5/5 x4 extr Lymphatics: No axilla or inguinal lymphadenopathy - Studies Laboratory Data (last 24 hrs) 12/08/23 12/08/23 01:15 01:15 WBC 13.30 H Hgb 13.0 Hct 38.3 Plt Count 260 Sodium 137 Potassium 3.7 BUN 16 Creatinine 1.31 H Glucose 102 Total Bilirubin 1.1 H AST < 10 L ALT 19 Alkaline Phosphatase 92 Assessment and Plan - Plan Sepsis due to UTI UTI Leukocytosis Acute kidney injury Possible pyelonephritis Pain control IV fluids IV antibiotic Started on levofloxacin as the patient is allergic to cefaclor Cultures pending Will change antibiotic as per sensitivity GI/DVT prophylaxis Advanced directive full code - Advance Directives Does patient have a Living Will: No Does patient have a Durable POA for Healthcare: No
[2023-12-08 04:17] LABS: PT Prothrombin Time 13.3 SECONDS (9.4-12.5); PTT, Activated Partial Thromb 29.1 SECONDS (24.3-36.9); Protime INR 1.19
[2023-12-08 04:54] VITALS: BMI 29.7
[2023-12-08] MEDS: NA CHLORIDE 0.9% 1,000 ML IV SCH (04:59)
[2023-12-08 05:23] LABS: Band Neutrophils 9 % (0-1); Blood Morphology Comment NOT SEEN (NOT SEEN); Differential Total Cells Count 100; Lymphocytes 4 % (15-42); Monocytes 1 % (0-10); Platelet Estimate ADEQ; Segmented Neutrophils 86 % (40-80)
[2023-12-08] MEDS: POTASSIUM CL SA 10 MEQ TAB PO ONE (05:53)
[2023-12-08] MEDS ORDERED: POTASSIUM CL SA 10 MEQ TAB PO ONE (05:57)
[2023-12-08] MEDS ORDERED: Levofloxacin 750mg IV 750 MG/150 ML BAG IV SCH (06:00)
[2023-12-08] MEDS ORDERED: MORPHINE 2 MG/ML SYR ONE (07:11)
[2023-12-08] MEDS: MORPHINE 2 MG/ML SYR IV PRN (07:12)
--- NOTE | 2023-12-08 08:12 | P.DS ---
Admission Date: 12/08/23 Discharge Date: 12/08/23 Disposition: ROUTINE DISCHARGE Discharge Condition: GOOD Reason for Admission: Fever Brief History of Present Illness: 38 yrs old Female with no significant past medical history came to ER with generalized weakness and frequency of micturition associated with dysuria and fever which has been going on for the last 3 days and has been progressively getting worse. She was diagnosed with UTI this morning and was started on Bactrim without much relief. She started having nausea and associated with some chills. Complains of bilateral flank pain worse on the right side. No similar illnesses in the past. Has history of UTIs. Patient was assessed in the ER and was admitted for further management of possible pyelonephritis with sepsis - Physical Exam General: Alert, Oriented x3, Mild distress HEENT: Atraumatic, Normocephalic Neck: Supple, 2+ carotid pulse no bruit Respiratory: Clear to auscultation bilaterally, Normal air movement Cardiovascular: Normal pulses, Regular rate/rhythm, Normal S1 S2 Capillary refill: <2 Seconds Gastrointestinal: Soft and benign, W/out hepatosplenomegaly Musculoskeletal: No clubbing, No swelling Integumentary: No rashes, No significant lesion Neurological: Normal speech, Normal strength at 5/5 x4 extr Lymphatics: No axilla or inguinal lymphadenopathy Hospital Course: 38 yrs old Female with no significant past medical history came to ER with generalized weakness and frequency of micturition associated with dysuria and fever which has been going on for the last 3 days and has been progressively getting worse. She was diagnosed with UTI this morning and was started on Bactrim without much relief. He was admitted with UTI, treated with Levaquin, repeat CBC has improved from 13, 211, will discharge home on p.o. Levaquin, patient needs to follow-up with PCP/urology in 1 week for frequent UTIs, will follow-up with microbiology, after discharge, patient tolerating diet, stable to discharge home on p.o. antibiotics, p.o. Diflucan per patient request Discharge home on p.o. Levaquin daily for 10 days. Diflucan, take 1 today, 1 after finishing antibiotics. Rad/Lab/Micro: UA greater than 500 leukoesterase, Abdominal CT, minimal periureteral stranding, no renal or ureteral bladder calculi, appearance is nonspecific can be seen in the setting of passed calculus, or urinary tract infection, possible uterine fibroid, renal ultrasound ordered, no acute findings Continue home medicines as previously prescribed GOAL: Clear understanding of disease process INSTRUCTIONS: Physician Discharge Instructions: -Follow-up with PCP in 1 to 2 weeks -Please call Dr. Lanza at [phone] if any questions regarding hospital stay -Please call nursing station at [phone] if any nursing or medication questions -Return to the emergency room if symptoms worsen Diet: ADA, low sodium Activity: Fall precautions Vital Signs/Physical Exam: Temp Pulse Resp BP Pulse Ox 99.2 F 90 16 122/78 98 12/08/23 05:07 12/08/23 05:07 12/08/23 07:12 12/08/23 05:07 12/08/23 07:12 Laboratory Data at Discharge: WBC 13.30 thou/uL (4.3-10.9) H 12/08/23 01:15 Hgb 13.0 g/dL (12.0-15.0) 12/08/23 01:15 Hct 38.3 % (36.0-45.0) 12/08/23 01:15 Plt Count 260 thou/uL (152-406) 12/08/23 01:15 PT 13.3 SECONDS (9.4-12.5) H 12/08/23 03:13 INR 1.19 12/08/23 03:13 APTT 29.1 SECONDS (24.3-36.9) 12/08/23 03:13 Sodium 137 mEq/L (136-145) 12/08/23 01:15 Potassium 3.7 mEq/L (3.5-5.1) 12/08/23 01:15 BUN 16 mg/dL (7-18) 12/08/23 01:15 Creatinine 1.31 mg/dL (0.55-1.02) H 12/08/23 01:15 Glucose 102 mg/dL (74-106) 12/08/23 01:15 Total Bilirubin 1.1 mg/dL (0.2-1.0) H 12/08/23 01:15 AST < 10 U/L (15-37) L 12/08/23 01:15 ALT 19 U/L (13-56) 08/20/24 01:15 Alkaline Phosphatase 92 U/L (45-117) 12/08/23 01:15 Home Medications: Ciprofloxacin HCl [Cipro 500 MG Tablet] 500 mg PO BID 7 Days #14 tab 12/08/23 Fluconazole [Diflucan] 100 mg PO DAILY #3 tab 12/08/23 Ibuprofen 400 mg PO BID PRN 7 Days #14 tab 12/08/23 New Medications: Ciprofloxacin HCl [Cipro 500 MG Tablet] 500 mg PO BID 7 Days #14 tab Fluconazole [Diflucan] 100 mg PO DAILY #3 tab Ibuprofen 400 mg PO BID PRN 7 Days #14 tab PRN Reason: Abdominal Pain Diet: Regular Activity: Fall precautions Followup: NONE,NONE [Primary Care Provider] - Time spent managing pt's care (in minutes): 45
--- NOTE | 2023-12-08 08:51 | RAD REPORT ---
EXAM DESCRIPTION: US - Renal Ultrasound-Complete - 12/08/2023 8:37 am CLINICAL HISTORY: hematuria COMPARISON: No comparisons FINDINGS: Both kidneys are normal in size, shape and echotexture. The right kidney measures 11.5 x 5.3 x 4.4 cm. No hydronephrosis, focal mass or perinephric fluid. The left kidney measures 10.4 x 4.3 x 4.5 cm. No hydronephrosis, focal mass or perinephric fluid. The urinary bladder is incompletely distended without gross abnormality seen. IMPRESSION: Unremarkable renal sonogram.
[2023-12-08] MEDS ORDERED: CEFEPIME 2 GM in NA CHLORIDE 0.9% 100 ML IV SCH (09:00)
[2023-12-08] MEDS ORDERED: NA CHLORIDE 0.9% 1,000 ML IV SCH (09:00)
[2023-12-08] MEDS ORDERED: CEFTRIAXONE 1,000 MG in NA CHLORIDE 0.9% 50 ML IVPB SCH (09:00)
[2023-12-08] MEDS ORDERED: HYDROCODONE/APAP 5/325 MG TAB ONE (10:41)
[2023-12-08] MEDS: HYDROCODONE/APAP 5/325 MG TAB PO PRN (10:42)
[2023-12-08 13:09] LABS: Absolute Eosinophils 0.1 K/uL (0-0.5); Absolute Lymphocytes (CBC) 1.9 K/uL (0.7-4.9); Absolute Monocytes 0.6 K/uL (0.1-1.3); Absolute Neutrophil 8.5 K/uL (1.8-8.0); Basophils % 0.3 % (0-1.3); Eosinophils % 1.2 % (0-4.4); Hematocrit 35.6 % (36.0-45.0); Hemoglobin 11.7 g/dL (12.0-15.0); Lymphocytes % 17.2 % (15.3-44.8); MCH 30.5 pg (27.0-35.0); MCHC 32.9 g/dL (32.0-36.0); MCV 92.8 fL (80-100); MPV 9.8 fL (7.6-11.3); Neutrophils % 76.3 % (41.7-73.7); Platelets 237 thou/uL (152-406); RBC Red Blood Cell Count 3.84 M/uL (3.86-4.86); Red Cell Distribution Width 13.9 % (12.1-15.2)
[2023-12-08 13:17] LABS: Anion Gap 8.9 mEq/L (5.0-15.0); Potassium 3.9 mEq/L (3.5-5.1)
--- OUTSIDE RECORDS SUMMARY | 2023-12-08 14:36 | XMS REPORT | Continuity of Care Document ---
Author Name Unknown Address [address] [facility] [place] [address] [facility] Address [address] [facility] [address] [place] [address] Care Team Providers Care Security Dispatcher Name Role Phone Mark Attending Clinician Unavail Aditya Underwood Attending Clinician [phone] Aditya Tuttle Attending Clinician Unavailab chelsey KENDALL Attending Clinician Unavailable Mark Admitting Clinician Unavail Aditya Underwood Admitting Clinician Unavailab chelsey WATERSChandraS Admitting Clinician Unavailable Payers Payer Name Policy Type Policy Number Effective Date Expirati on Date Source [facility] [id number] Problems Condition Name Condition Details Condition Category Status Onset Date Resolution Date Last Treatment Date Treating Clinician Comments Source Complete tear, knee, anterior cruciate ligament Complete Tear, Knee, Anterior Cruciate Ligament Problem Active 8- 00:00: 00 [facility] Allergies, Adverse Reactions, Alerts Allergy Name Allergy Type Status Severity Reaction(s) Onset Date Inactive Date Treating Clinician Comments Source iodine DA Active SV ANAPHYLAXIS 2-24 00:00: 00 [facility] cefaclor DA Active U RASH, VOMITING 2-24 00:00: 00 [facility] nickel DA Active MO SWELLING, RASH 2022-0 2-24 00:00: 00 [facility] iodine DA Active U 213 00:00: 00 [facility] cefaclor DA Active U 06-02 00:00: 00 [facility] CECLOR Allergy to substanc e Active Other [facility] Iodine Allergy to substanc e Active Other [facility] Social History Smoking Status Start Date Stop Date Source Former Smoker [facility] Medications Ordered Medication Name Filled Medication Name Start Date Stop Date Current Medication? Ordering Clinician Indication Dosage Frequency Signature (SIG) Comments Components Source acetaminoph en 300 mg-codeine 30 mg tablet TAKE 1 TABLET BY MOUTH EVERY 4 TO 6 HOURS NEEDED FOR PAIN acetaminoph en 300 mg-codeine 30 mg tablet TAKE 1 TABLET BY MOUTH EVERY 4 TO 6 HOURS NEEDED FOR PAIN No acetaminop hen 300 mg-codeine 30 mg tablet TAKE 1 TABLET BY MOUTH EVERY 4 TO 6 HOURS NEEDED FOR PAIN [facility] cephalexin 500 mg capsule TAKE 1 CAPSULE BY MOUTH EVERY 8 HOURS DIRECTED FOR 5 DAYS cephalexin 500 mg capsule TAKE 1 CAPSULE BY MOUTH EVERY 8 HOURS DIRECTED FOR 5 DAYS No cephalexin 500 mg capsule TAKE 1 CAPSULE BY MOUTH EVERY 8 HOURS DIRECTED FOR 5 DAYS [facility] cyclobenzap rine 10 mg tablet TAKE 1 TABLET BY MOUTH THREE TIMES DAILY NEEDED cyclobenzap rine 10 mg tablet TAKE 1 TABLET BY MOUTH THREE TIMES DAILY NEEDED No cyclobenza samir 10 mg tablet TAKE 1 TABLET BY MOUTH THREE TIMES DAILY NEEDED [facility] fluconazole 200 mg tablet TAKE 1 TABLET BY MOUTH NEEDED DIRECTED FOR 1 DAY fluconazole 200 mg tablet TAKE 1 TABLET BY MOUTH NEEDED DIRECTED FOR 1 DAY No fluconazol e 200 mg tablet TAKE 1 TABLET BY MOUTH NEEDED DIRECTED FOR 1 DAY [facility] hydrocodone 10 mg-acetamin ophen 325 mg tablet TAKE 1 TABLET BY MOUTH EVERY 12 HOURS NEEDED FOR 10 DAYS hydrocodone 10 mg-acetamin ophen 325 mg tablet TAKE 1 TABLET BY MOUTH EVERY 12 HOURS NEEDED FOR 10 DAYS No hydrocodon e 10 mg-acetami nophen 325 mg tablet TAKE 1 TABLET BY MOUTH EVERY 12 HOURS NEEDED FOR 10 DAYS [facility] naproxen 500 mg tablet TAKE 1 TABLET BY MOUTH TWICE DAILY WITH FOOD naproxen 500 mg tablet TAKE 1 TABLET BY MOUTH TWICE DAILY WITH FOOD No naproxen 500 mg tablet TAKE 1 TABLET BY MOUTH TWICE DAILY WITH FOOD [facility] tramadol 50 mg tablet TAKE 1 TABLET BY MOUTH EVERY 8 HOURS NEEDED tramadol 50 mg tablet TAKE 1 TABLET BY MOUTH EVERY 8 HOURS NEEDED No tramadol 50 mg tablet TAKE 1 TABLET BY MOUTH EVERY 8 HOURS NEEDED [facility] Nexium 24HR Nexium 24HR No Ne xium 24HR [facility] Vital Signs Vital Name Observation Time Observation Value Comments S ource Height 2021-12-19 00:00:00 66 [in_i] [facility] Procedures Procedure Date / Time Performed Performing Clinicia n Source Knee Arthroscopy/surgery 2021-07-26 00:00:00 [facility] Plan of Care Planned Activity Planned Date Details Comments Source Instructions [facility] Encounters Start Date/Time End Date/Time Encounter Type Admission Type Attending Clinicians Care Facility Care Department Encounter ID Source 2021-12-19 00:00:00 2021-12-19 00:00:00 [facility] [id number] [facility] 2021-12-19 00:00:00 2021-12-19 00:00:00 [facility] [id number] 2021-12-19 00:00:00 2021-12-19 00:00:00 Aditya Tuttle MD: [address] [place] [id number] , Ph. [phone] [facility] [place] [facility] [id number] [facility] 2021-10-29 00:00:00 2021-10-29 00:00:00 [facility] [id number] [facility] 2021-09-19 11:29:00 2021-09-19 11:29:00 Outpatient FOG_Parag _German [facility] [id number] [facility] 2021-09-19 00:00:00 2021-09-19 00:00:00 Aditya Tuttle MD: [address] [place] [id number] , Ph. [phone] [facility] [place] [facility] [place] [facility] [id number] [facility] 2021-09-19 00:00:00 2021-09-19 00:00:00 Outpatient Aditya Tuttle [facility] [id number] 2021-09-18 03:04:00 2021-09-18 03:04:00 Outpatient [facility] [id number] [facility] 2021-07-26 09:05:00 2021-07-26 09:05:00 [facility] [id number] 2020-08-30 12:13:00 2020-08-30 12:13:00 Outpatient [facility] [id number] [facility] Notes Date/Time Note Provider Source 2021-07-26 13:02:00 [id number] [place] [id number] PATIENT NAME: JOSE LIAO ADMIT DATE: 07/26/21 ACCOUNT NO: [id number] ROOM NO: AGE: 36 REPORT TYPE: OPERATIVE REPORT SEX: F ADMITTING PHYSICIAN: ATTENDING PHYSICIAN:Aditya Tuttle MD OPERATION DATE: 07/26/2021 FINAL DIAGNOSIS: Right knee anterior cruciate ligament tear, S83.511A. FINAL PROCEDURE: Right knee Achilles allograft anterior cruciate ligament reconstruction, 93925. PREOPERATIVE DIAGNOSIS: Right knee anterior cruciate ligament tear, S83.511A. POSTOPERATIVE DIAGNOSIS: Right knee anterior cruciate ligament tear, S83.511A. PROCEDURE: Right knee Achilles allograft anterior cruciate ligament reconstruction, 96684. FINAL IMPLANTS AND TECHNIQUE: 105 mm x 9.5 mm Achilles allograft was used. A proximal fixation was with a 9 x 20 mm Arthrex PEEK screw. Distal fixation was with a 9 x 20 mm Delta BioComposite screw and backed up using a 4.75 mm Arthrex PEEK SwiveLock anchor. Anteromedial portal drilling was used. SURGEON: Dr Aditya Tuttle. ASSOCIATE PROGRAMMER ANALYST: Adelina Mcdaniels PA-C An assistant professor of physics?s skilled hands were necessary for this case to complete the procedure safely and efficiently, minimizing risk of infection and injury to other anatomic structures. The assistant professor of physics?s advanced skill and knowledge was essential in preparation of the graft, drilling of tunnels, passage of the graft, and fixation of the graft. These tasks required more than one set of skilled hands. The assistant professor of physics?s advanced skill and knowledge will help optimize the patient?s outcome. ANESTHESIA: General. BRIEF CLINICAL HISTORY: A 36-year-old female, who injured her right knee while jumping on a trampoline in October 2020. She had significant swelling and pain. She has done rehabilitation in the interim. She continues to have instability. She has difficulty walking on uneven ground, going up and downstairs. MRI demonstrates ACL tear; however, the meniscus and articular cartilage were difficult to assess. She now presents for operative intervention. PROCEDURE DETAIL: The right knee was appropriately identified. The patient was then placed under general anesthesia and placed in the supine position. The right knee was prepped and draped in sterile fashion. Superomedial inflow portal PATIENT NAME: JOSE LIAO was established. INTRAARTICULAR FLUID: None. Anterolateral and anteromedial portals were established. FINDINGS IN THE NOTCH: ACL: High-grade partial-thickness proximal tear with most of the ACL attached to the PCL. ACL was debrided and the [id number] position was identified. Point was marked in this right knee at approximately the 10 o'clock position, 6 mm anterior to posterior wall. Tibial tunnel was drilled 45 mm in length, 9.5 mm in diameter entering centrally through the ACL footprint. Femoral tunnel was drilled through the anteromedial portal, a 22 mm in depth, 9.5 mm in diameter, leaving a 1 mm back wall. An Achilles allograft was prepared on the back table. The graft was now pulled up into the tibial and femoral tunnels and fixed in the femoral side using a 9 x 20 mm Arthrex PEEK screw. PEEK screw was used because the patient has a nickel allergy. The knee was then cycled 10 times, placed in full extension and with an axial load and posterior drawer applied, it was fixed on the tibial side using a 9 x 28 mm Delta BioComposite screw and backed up using a 4.75 mm Arthrex PEEK SwiveLock anchor. PCL: Intact. OTHER: None. FINDINGS IN THE MEDIAL COMPARTMENT: ARTICULAR CARTILAGE: Intact. MENISCUS: Intact. OTHER: None. FINDINGS IN THE LATERAL COMPARTMENT: ARTICULAR CARTILAGE: Intact. MENISCUS: Intact. OTHER: None. FINDINGS IN THE PATELLOFEMORAL COMPARTMENT: PATELLAR ARTICULAR CARTILAGE: Intact. TROCHLEAR ARTICULAR CARTILAGE: Mild fraying of the central trochlea, stable, did not need to be addressed. OTHER: None. MEDIAL GUTTER: None. LATERAL GUTTER: None. SUPRAPATELLAR POUCH: None. All instruments were then removed from the knee and the portal sites were closed using 3-0 Monocryl suture. The knee was injected with morphine. Dressings were then placed. COMPLICATIONS: None. EBL: Minimal. SPECIMENS: None. PATIENT NAME: JOSE LIAO PROGNOSIS: Good. She should see improvement in her stability. I spoke with her family postoperatively. I explained that she will be partial weightbearing for the next couple of weeks. She will do home exercise until she returns to clinic. We can then start formal therapy and return to clinic. Her states that she does have some place in mind for physical therapy that she would like to attend that. Dictated By: Aditya Tuttle MD WT: OP:GRANT/RAHUL/JOSE A Conf#: [id number]/DID#: [id number] Authenticated by Aditya Tuttle MD On 07/27/2021 08:00:26 AM at 0800 PATIENT NAME: JOSE LIAO [facility] 2021-07-26 07:03:00 [facility] Brief Op Note REPORT#:[id number] REPORT STATUS: Signed DATE:07/26/21 TIME: 0703 PATIENT: JOSE LIAO UNIT #: [id number] ROOM/BED: : 86 AGE: 36 SEX: F ATTEND: Aditya Tuttle MD ADM AUTHOR: Aditya Tuttle MD * ALL edits or amendments must be made on the electronic/computer document * Op/Inv Proc Note - Brief Pre-procedure diagnosis: right knee ACL tear Post-procedure diagnosis: same as pre procedure dx Procedures performed: right knee arthroscopy with allograft ACL reconstruction Primary Surgeon: MD Parag [facility] Therapist(s): JEANNE Mcdaniels Findings: none Complications: none Estimated blood loss in ml's: none Specimens removed/altered: none at 0749 RPT #:[id number] END OF REPORT [facility] 2021-07-19 12:57:00 [id number] [place] [address] PATIENT NAME: JOSE LIAO ADMIT DATE: ACCOUNT NO: [id number] ROOM NO: AGE: 36 REPORT TYPE: HISTORY AND PHYSICAL SEX: F ADMITTING PHYSICIAN: ATTENDING PHYSICIAN:Aditya Tuttle MD ADMISSION DATE: 07/26/2021 DATE OF ANTICIPATED SURGERY: Will be 07/26/2021. CHIEF COMPLAINT: Right knee pain. HISTORY OF PRESENT ILLNESS: This is a 36-year-old female with right knee pain and instability for several months. She injured the knee while jumping on a trampoline in October of 2020. Her knee gave out. She had significant pain and swelling at that time. An MRI was obtained confirming an ACL tear. She has done rehabilitation in the interim and has restored her range of motion. She now presents for surgical intervention. PAST MEDICAL HISTORY: Asthma, cervical cancer, sinus allergies, UTI. PAST SURGICAL HISTORY: , esophagus. MEDICATIONS: Nexium and Xyzal. ALLERGIES: CECLOR AND IODINE. FAMILY HISTORY: Noncontributory. SOCIAL HISTORY: The patient denies any tobacco or alcohol use. REVIEW OF SYSTEMS: HEENT: Negative. PULMONARY: Negative. RENAL: Negative. CARDIOVASCULAR: Negative. GASTROINTESTINAL: Negative. NEUROLOGIC: Negative. ENDOCRINE: Negative. PHYSICAL EXAMINATION: GENERAL: This is a well-developed, well-nourished 36-year-old female, in no acute distress. HEENT: Normal. PULMONARY: Spontaneous breathing. CARDIOVASCULAR: Spontaneous pulse. ABDOMEN: Soft. EXTREMITIES: Examination of the right lower extremity demonstrates medial joint PATIENT NAME: JOSE LIAO line tenderness to palpation. Grade II/III ACL with soft endpoint. The patient has 125 degrees of flexion, full extension. Positive Romel's exam. Knee is stable to valgus and varus stress testing. Negative Adama's exam. DIAGNOSTIC STUDIES: Outside MRI reviewed of the right knee demonstrates moderate effusion, full-thickness tear of the mid substance ACL. Posterior bone contusions. Difficult to assess menisci and cartilage damage. ASSESSMENT: Right knee anterior cruciate ligament tear. PLAN: Right knee arthroscopy with allograft ACL reconstruction and any associated procedures. Risks and benefits have been detailed to the patient including all rehab and recovery time. The patient understands and is ready to proceed. Dictated By: Adelina Mcdaniels PA-C for Aditya Tuttle MD WT: HP:GARNT/SIMBA/JOSE A Conf#: [id number]/DID#: [id number] Authenticated by Adelina Mcdaniels PA-C On 07/23/2021 07:16:40 AM Authenticated by Aditya Tuttle MD On 07/23/2021 07:49:59 AM at 0749 at 0716 PATIENT NAME: [facility]
[2023-12-08 16:23] VITALS: TEMP 99.3
[2023-12-08 16:34] VITALS: BP 116/63; O2SAT 96
--- NOTE | 2023-12-08 17:45 | EKG ---
Test Date: 2023-12-08 Test Time: 03:20:08 [employer] Tech: DOTTIE MEASUREMENT RESULTS: Intervals: Rate: 91 PA: 142 QRSD: 82 QT: 328 QTc: 403 [place]: P: 55 PA: 142 QRS: 69 T: 80 INTERPRETIVE STATEMENTS: Normal sinus rhythm Normal ECG No previous ECG available for comparison Electronically Signed On 12-08-23 17:44:05 CDT by Marino Alba
--- NOTE | 2023-12-08 20:12 | RAD REPORT ---
EXAM DESCRIPTION: CT Abdomen and Pelvis Without Intravenous Contrast CLINICAL HISTORY: Flank pain. TECHNIQUE: Axial computed tomography images of the abdomen and pelvis without intravenous contrast. Sagittal and coronal reformatted images were created and reviewed. This CT exam was performed usi ng one or more of the following dose reduction techniques: automated exposure control, adjustment o f the mA and/or kV according to patient size, and/or use of iterative reconstruction technique. COMPARISON: No relevant prior studies available. FINDINGS: Lung bases: Unremarkable. No mass. No consolidation. ABDOMEN: Liver: Unremarkable. Gallbladder and bile ducts: Single gallstone within an otherwise normal-appearing gallbladder. No ductal dilation. Pancreas: Unremarkable. No ductal dilation. Spleen: Unremarkable. No splenomegaly. Adrenals: Unremarkable. No mass. Kidneys and ureters: No renal or ureteral calculi. No hydronephrosis. Minimal periureteral strandin g on the right. Stomach and bowel: Moderate stool. No bowel obstruction. No appreciable mucosal thickening. PELVIS: Appendix: Normal caliber appendix. No findings to suggest acute appendicitis. Bladder: Unremarkable. No stones. Reproductive: There is a lobulated soft tissue density structure within the pelvis posterior to the uterus measuring approximately 5 x 4 x 4.5 cm (series 201 image 68, series 202 image 60 and series 2 03 image 73. This appears separate from the right ovary. The left ovary is unremarkable as visualized ABDOMEN and PELVIS: Intraperitoneal space: Trace free fluid in the cul-de-sac. No free air. Bones/joints: No acute fracture. No dislocation. Soft tissues: Small fat-containing umbilical hernia. Vasculature: Unremarkable. No abdominal aortic aneurysm. Lymph nodes: Unremarkable. No enlarged lymph nodes. IMPRESSION: 1. Minimal right periureteral stranding. No renal, ureteral or bladder calculi. This a ppearance is nonspecific and can be seen in the setting of recently passed calculus. Please correlate clinically for urinary tract infection. 2. Lobulated soft tissue density structure within the pelvis posterior to the uterus measuring appr oximately 5 x 4 x 4.5 cm. This appears separate from the right ovary and may reflect a subserosal fib roid. The possibility of a nonspecific mesenteric mass cannot be excluded on the basis of this examin ation. Consider repeat imaging with contrast for further delineation. Ultrasound may be inconclusive. 3. Other findings as above. Electronically signed by: Kali Rangel MD 12/08/2023 02:45 AM CDT RP Due to temporary technical issues with the PACS/Fluency reporting system, reports are being signed by the in house radiologists without review as a courtesy to insure prompt reporting. The interpreting radiologist is fully responsible for the content of the report.
[2023-12-09] MEDS ORDERED: Levofloxacin 750mg IV 750 MG/150 ML BAG IV SCH (05:00)
== END 2023-12-08 15:39 | disposition home or self-care (01) | DRG 872 ==
LOC: ER 00:35 → ERHOLD 04:12
PROVIDERS: ADMIT Family Medicine; ATTEND Hospitalist
DX: A41.9 Sepsis, unspecified organism (principal); N39.0 Urinary tract infection, site not specified; N17.9 Acute kidney failure, unspecified; D25.9 Leiomyoma of uterus, unspecified; K21.9 Gastro-esophageal reflux disease without esophagitis; Z88.8 Allergy status to other drugs, medicaments and biological substances; Z91.048 Other nonmedicinal substance allergy status
CPT/HCPCS: 36415; 74176; 76770; 80048; 80053; 81001; 81025; 83605; 85025; 85610; 85730; 87040; 87086; 87088; 93005; 96361; 96365; 96375; 99285; J2270; J2405; J3010; J7030

== ENCOUNTER 2024-11-26 12:04 | Inpatient (IN) | payer BC, SELFPAY ==
--- OUTSIDE RECORDS SUMMARY | 2024-11-26 12:07 | XMS REPORT | Continuity of Care Document ---
Author Name Unknown Address [address] [place] [address] [facility] Address [address] [place] [address] Care Team Providers Care Keeler Polygraph Operator Name Role Phone Mark Attending Clinician Unavail able Aditya Tuttle Attending Clinician [phone] Aditya Tuttle Attending Clinician Unavailab chelsey KENDALL Attending Clinician Unavailable JOSR_Americo Admitting Clinician Unavail able Aditya Tuttle Admitting Clinician Unavailab chelsey KENDALL Admitting Clinician Unavailable Payers Payer Name Policy Type Policy Number Effective Date Expirati on Date Source [facility] [id number] Problems Condition Name Condition Details Condition Category Status Onset Date Resolution Date Last Treatment Date Treating Clinician Comments Source Complete tear, knee, anterior cruciate ligament Complete Tear, Knee, Anterior Cruciate Ligament Problem Active 12-18 00:00: 00 [facility] Allergies, Adverse Reactions, Alerts Allergy Name Allergy Type Status Severity Reaction(s) Onset Date Inactive Date Treating Clinician Comments Source iodine DA Active SV ANAPHYLAXIS 2-24 00:00: 00 [facility] cefaclor DA Active U RASH, VOMITING 2-24 00:00: 00 [facility] nickel DA Active MO SWELLING, RASH 2- 00:00: 00 [facility] iodine DA Active U 06-02 00:00: 00 [facility] [place] [facility] cefaclor DA Active U 06-02 00:00: 00 [facility] CECLOR Allergy to [...] MOUTH THREE TIMES DAILY NEEDED No cyclobenza saimr 10 mg tablet TAKE 1 TABLET BY [...] ID Source 2021-12-19 00:00:00 2021-12-19 00:00:00 Outpatient Aditya Tuttle [id number] 2021-12-19 00:00:00 2021-12-19 00:00:00 Aditya Tuttle MD: [address] [place] [id number] , Ph. [phone] [facility] [address] [id number] [facility] 2021-09-19 00:00:00 2021-09-19 00:00:00 Aditya Tuttle MD: [address] [place] [id number] , Ph. [phone] [facility] [place] - [facility] [address] [id number] [facility] 2021-09-19 00:00:00 2021-09-19 00:00:00 Outpatient Aditya Tuttle [id number] 2021-07-26 09:05:00 2021-07-26 09:05:00 Inpatient PARKER Carol AnnqamarAditya HCATO DAYS [id number] [facility] Notes Date/Time Note Provider Source 2021-07-26 13:02:00 [id number] [place] [address] PATIENT NAME: JOSE LIAO ADMIT DATE: 07/26/21 ACCOUNT NO: [id number] ROOM NO: AGE: 36 REPORT TYPE: OPERATIVE REPORT SEX: F ADMITTING PHYSICIAN: ATTENDING PHYSICIAN:Aditya Tuttle MD OPERATION DATE: 07/26/2021 FINAL DIAGNOSIS: Right knee anterior cruciate ligament tear, S83.511A. FINAL PROCEDURE: Right knee Achilles allograft anterior cruciate ligament reconstruction, 40672. PREOPERATIVE DIAGNOSIS: Right knee anterior cruciate ligament tear, S83.511A. POSTOPERATIVE DIAGNOSIS: Right knee anterior cruciate ligament tear, S83.511A. PROCEDURE: Right knee Achilles allograft anterior cruciate ligament reconstruction, 96734. FINAL IMPLANTS AND TECHNIQUE: 105 mm x 9.5 mm Achilles allograft was used. A proximal fixation was with a 9 x 20 mm Arthrex PEEK screw. Distal fixation was with a 9 x 20 mm Delta BioComposite screw and backed up using a 4.75 mm Arthrex PEEK SwiveLock anchor. Anteromedial portal drilling was used. SURGEON: Dr Aditya Tuttle. DISTRIBUTION CENTER ASSISTANT: Adelina Mcdaniels PA-C An back office medical assistant?s skilled hands were necessary for this case to complete the procedure safely and efficiently, minimizing risk of infection and injury to other anatomic structures. The back office medical assistant?s advanced skill and knowledge was essential in preparation of the graft, drilling of tunnels, passage of the graft, and fixation of the graft. These tasks required more than one set of skilled hands. The back office medical assistant?s advanced skill and knowledge will help optimize [...] the PCL. ACL was debrided and the qiun-awp-qib position was identified. Point was marked in [...] Aditya Tuttle MD WT: OP:GRANT/RAHUL/JOSE A Conf#: [id number]/DID#: [id number] Authenticated by Aditya Tuttle MD On 07/27/2021 08:00:26 AM at 0800 PATIENT NAME: JOSE LIAO [facility] 2021-07-26 07:03:00 [facility] Brief Op Note REPORT#:[id number] REPORT STATUS: Signed DATE:07/26/21 TIME: 07 PATIENT: JOSE LIAO UNIT #: [id number] ROOM/BED: : 86 AGE: 36 SEX: F ATTEND: Aditya Tuttle MD ADM AUTHOR: Aditya Tuttle MD * ALL edits or amendments must be made on the electronic/computer document * Op/Inv Proc Note - Brief Pre-procedure diagnosis: right knee ACL tear Post-procedure diagnosis: same as pre procedure dx Procedures performed: right knee arthroscopy with allograft ACL reconstruction Primary Surgeon: MD Parag Mold Yard Crane Operator(s): JEANNE Mcdaniels Findings: none Complications: none Estimated blood loss in ml's: none Specimens removed/altered: none at 0749 RPT #:[id number] END OF REPORT [facility] 2021-07-19 12:57:00 [id number] [facility] [address] [place] [address] PATIENT NAME: JOSE LIAO ADMIT DATE: ACCOUNT NO: [id number] ROOM NO: AGE: 36 REPORT TYPE: HISTORY [...] Mcdaniels PA-C for Aditya Tuttle MD WT: HP:GRANT/SIMBA/JOSE A Conf#: [id number]/DID#: [id number] Authenticated by Adelina Mcdaniels PA-C On 07/23/2021 07:16:40 AM Authenticated by Aditya Tuttle MD On 07/23/2021 07:49:59 AM at 0749 at 0716 PATIENT NAME: [facility]
[2024-11-26] MEDS ORDERED: NA CHLORIDE 0.9% 1,000 ML ONE ×2 (14:07→17:56)
[2024-11-26] MEDS ORDERED: MORPHINE 4 MG/ML SYR ONE ×2 (14:07→16:17)
[2024-11-26] MEDS ORDERED: ONDANSETRON 4 MG/2 ML VIAL ONE ×2 (14:07→16:17)
[2024-11-26 14:08] LABS: Absolute Lymphocytes (CBC) 1.7 K/uL (0.7-4.9); Hematocrit 39.8 % (36.0-45.0); Hemoglobin 13.4 g/dL (12.0-15.0); MCH 30.1 pg (27.0-35.0); MCHC 33.7 g/dL (32.0-36.0); MCV 89.2 fL (80-100); MPV 9.7 fL (7.6-11.3); Nucleated RBC Absolute Count 0.0 (0-0); Nucleated Red Blood Cells % 0.1 % (0-0); RBC Red Blood Cell Count 4.46 M/uL (3.86-4.86); White Blood Count 13.20 thou/uL (4.3-10.9)
[2024-11-26 14:33] LABS: ALT/SGPT 20 U/L (13-56); Albumin 3.5 g/dL (3.4-5.0); Albumin/Globulin Ratio 0.9 (1.1-1.8); Alkaline Phosphatase 81 U/L (45-117); Anion Gap 8.5 mEq/L (5.0-15.0); BUN Blood Urea Nitrogen 8 mg/dL (7-18); Globulin 3.7 g/dL (2.3-3.5); Glucose Level 107 mg/dL (74-106); Lipase 26 U/L (13-75); Potassium 3.5 mEq/L (3.5-5.1)
[2024-11-26 14:35] LABS: AST/SGOT < 10 U/L (15-37)
--- NOTE | 2024-11-26 15:36 | RAD REPORT ---
EXAMINATION: US Abdomen Exam Limited CLINICAL HISTORY: ABD PAIN COMPARISON: 12/08/2023 TECHNIQUE: Limited upper abdominal grayscale and color flow sonographic images. FINDINGS: Gallbladder: 1.8 cm echogenic shadowing calculus at the neck. No wall thickening. Trace pericholecyst ic fluid, nonspecific. Gallbladder is moderately distended with reportedly negative sonographic Johnston's sign. Bile ducts: No intrahepatic or extrahepatic biliary dilatation. Common bile duct measures 3 mm. Liver: Visualized portions of the liver demonstrate normal echogenicity with no suspicious findings. Fluid: No ascites. IMPRESSION: Gallbladder is moderately distended, with single gallstone. No other findings to suggest acute cholec ystitis.
--- NOTE | 2024-11-26 17:02 | RAD REPORT ---
EXAMINATION: CT Stone Protocol CLINICAL INDICATION: Female, 39 years old. ABD PAIN TECHNIQUE: CT abdomen and pelvis was performed, without IV contrast, as per department protocol. Axia l, sagittal and coronal reconstructions were obtained. One or more of the following dose reduction techniques were used: Automated exposure control, adjustment of the mA and kV according to the patien t size, and iterative reconstruction. Unless otherwise specified, incidental findings do not require dedicated imaging follow-up. COMPARISON: No prior exam. FINDINGS: The lack of intravenous contrast limits the sensitivity of this exam for evaluation of solid visceral organs, vascular structures, and retroperitoneum. LOWER CHEST: The visualized lung bases are clear. LIVER: Normal in size and contour. No focal lesion. BILIARY SYSTEM: 1.8 cm calculus at the neck. Moderately distended gallbladder with mild pericholecyst ic fluid. SPLEEN: Normal size. No focal lesion. PANCREAS: No mass, ductal dilation, or idalia-pancreatic fluid. ADRENALS: Normal; no mass. KIDNEYS AND URETERS: Normal size and contour. No hydronephrosis. URINARY BLADDER: Normal contour. GASTROINTESTINAL TRACT: Air-fluid levels within the central abdomen within nondistended small bowel l oops. No evidence of bowel obstruction, free air or abscess. Mild free pelvic fluid. APPENDIX: Normal appendix. LYMPH NODES: No lymphadenopathy. MUSCULOSKELETAL: No acute or suspicious osseous abnormality. ADDITIONAL FINDINGS: 4.2x3.2 cm ovoid hyperdense right pelvic lesion, stable, may represent a complex ovarian cyst or pedunculated fibroid. IMPRESSION: 1.8 cm calculus at the neck. Moderately distended gallbladder with mild pericholecystic fluid. Please correlate clinically for evidence of acute cholecystitis. Nonspecific air-fluid levels within nondistended central abdominal small bowel loops, could relate to diarrheal state. Mild free pelvic fluid, nonspecific, and could be physiologic.
[2024-11-26] MEDS ORDERED: PIPERACIL/TAZO 3.375 GM VIAL IV ONE (17:56)
[2024-11-26] MEDS ORDERED: NA CHLORIDE 0.9% 100 ML ONE (17:56)
--- NOTE | 2024-11-26 17:59 | EDPHYS ---
Physician Documentation [facility] Name: Roxy Umaña Age: 39 yrs Sex: Female : 1985 Arrival Date: 11/26/2024 Time: 12:04 Bed 13 Private MD: ED Physician Maria Alejandra Wilson HPI: 11/26 18:02 This 39 yrs old Female presents to ER via Ambulatory with complaints of dr5 Constipation, Possible Kidney Stone. 18:02 Onset: The symptoms/episode began/occurred acutely, 2 day(s) ago. Patient is a dr5 39-year-old female with history of GERD coming in with right upper quadrant abdominal pain this been going on for the past 2 days. Patient reports that every time she eats or drinks her pain is worse. Patient reports that she went to urgent care and had x-ray that revealed constipation. Urgent care recommended [id number]-[id number] medications which are not helping her abdominal pain.. RECORD KEEPER: 21:20 Not kj2 Historical: - Allergies: 12:45 Ceclor; ll1 12:45 Iodine; ll1 - PMHx: 12:45 GERD; ll1 - PSHx: 12:45 section; ll1 - Immunization history:: Adult Immunizations up to date. - Infectious Disease History:: Denies. - Social history:: Smoking status: Reported history of juuling and/or vaping. ROS: 18:02 Constitutional: as per hpi dr5 Exam: 18:02 Constitutional: This is a well developed, well nourished patient who is awake, alert, dr5 and in no acute distress. Head/Face: Normocephalic, atraumatic. Eyes: Pupils equal round and reactive to light, extra-ocular motions intact. Lids and lashes normal. Conjunctiva and sclera are non-icteric and not injected. Cornea within normal limits. Periorbital areas with no swelling, redness, or edema. Neck: Trachea midline, no thyromegaly or masses palpated, and no cervical lymphadenopathy. Supple, full range of motion without nuchal rigidity, or vertebral point tenderness. No Meningismus. Chest/axilla: Normal chest wall appearance and motion. Nontender with no deformity. No lesions are appreciated. Cardiovascular: Regular rate and rhythm with a normal S1 and S2. Normal PMI, no JVD. No pulse deficits. Respiratory: Lungs have equal breath sounds bilaterally, clear to auscultation. No rales, rhonchi or wheezes noted. No increased work of breathing, no retractions or nasal flaring. 18:02 Back: No spinal tenderness. No costovertebral tenderness. Full range of motion. Skin: Warm, dry with normal turgor. Normal color with no rashes, no lesions, and no evidence of cellulitis. MS/ Extremity: Pulses equal, no cyanosis. Neurovascular intact. Full, normal range of motion. Neuro: Awake and alert, GCS 15, oriented to person, place, time, and situation. Cranial nerves II-XII grossly intact. Motor strength 5/5 in all extremities. Sensory grossly intact. Cerebellar exam normal. Normal gait. 18:02 Abdomen/GI: Inspection: abdomen appears normal, Bowel sounds: normal, Palpation: moderate abdominal tenderness, in the right upper quadrant, Vital Signs: 12:45 BP 124 / 78; Pulse 67; Resp 16; Temp 97.3; Pulse Ox 100% on R/A; Weight 83.91 kg; ll1 Height 5 ft. 7 in. ; Pain 7/10; 14:51 BP 138 / 83; Pulse 63; Resp 18; Pulse Ox 100% ; kj2 15:56 BP 140 / 80; Pulse 56; Resp 18; Pulse Ox 100% on R/A; kj2 18:00 BP 156 / 92; Pulse 66; Resp 18; Pulse Ox 100% on R/A; kj2 19:00 BP 151 / 82; Pulse 66; Resp 20; Pulse Ox 100% on R/A; kj2 20:00 BP 153 / 88; Pulse 66; Resp 20; Pulse Ox 100% on R/A; kj2 12:45 Body Mass Index 28.97 (83.91 kg, 170.18 cm) ll1 12:45 Pain Scale: Adult ll1 MDM: 12:14 Medical Screening Exam initiated dr5 17:12 Management of patient was discussed with the following: Casting And Pasting Supervisor: Dr. Mcintyre dr5 (General Surgery) - NPO at midnight. IVF and IV Abx for possible cholecystectomy tomorrow.. 18:02 Differential diagnosis: viral Infection, Cholecystitis, pancreatitis, cholelithiasis, dr5 electrolyte abnormality. Data reviewed: vital signs, nurses notes, lab test result(s), amylase and lipase, CBC, white blood cell count, hemoglobin, hematocrit, platelets, electrolytes, sodium, potassium, chloride, serum bicarbonate, BUN, creatinine, serum glucose, hepatic panel, radiologic studies, CT scan, ultrasound. Consideration of Admission/Observation Patient was admitted/placed on observation. Management of patient was discussed with the following: Hospitalist: Dr. Snyder. I considered the following discharge prescriptions or medication management in the emergency department I discussed and recommended Over The Counter medications, Medications were administered in the Emergency Department. See MAR. Historians other than the Patient: Spouse/Significant Other: . Care significantly affected by the following chronic conditions: GERD. Care significantly affected by the following Social Determinants of Health: Poor access to healthcare and/or lack of insurance, Poor access to transportation, Problems related to employment. Counseling: I had a detailed discussion with the patient and/or guardian regarding the historical points, exam findings, and any diagnostic results supporting the discharge/admit diagnosis, the presence of at least one elevated blood pressure reading (>120/80) during this emergency department visit, lab results, radiology results, the need for further work-up and treatment in the hospital. Medication response: morphine relieved the patient's pain. Symptoms have resolved, Zofran relieved the patient's nausea. Response to treatment: the patient's symptoms have markedly improved after treatment. Special discussion: I have referred the patient to see his PCP for further evaluation of high blood pressure. ED course: Limit patient for possible surgery tomorrow. I explained to patient and her that Dr. Mcintyre will see patient tomorrow and will discuss options at that time. IV fluids started. IV Zosyn given. Explained everything to patient and and both are agreeable plan.. 11/26 13:40 Order name: CBC with Diff; Complete Time: 14:41 dr5 11/26 13:40 Order name: CMP; Complete Time: 14:41 dr5 11/26 13:40 Order name: Lipase; Complete Time: 14:41 dr5 11/26 13:40 Order name: Test, Urine dr5 11/26 13:40 Order name: UA Rfx Kush Cult if indicated dr5 11/26 14:39 Order name: Test, Serum; Complete Time: 15:33 sp 11/26 20:00 Order name: Protime (+INR) EDMS 11/26 20:00 Order name: PTT, Activated Partial Thromb EDMS 11/26 20:00 Order name: CBC with Automated Diff EDMS 08 20:00 Order name: CBC with Automated Diff EDMS 11/26 20:00 Order name: Comprehensive Metabolic Panel EDMS 11/26 20:00 Order name: Comprehensive Metabolic Panel EDMS 11/26 20:00 Order name: Lipid Profile EDMS 11/26 20:00 Order name: Lipid Profile EDHI 11/26 13:51 Order name: US Abdomen Limited: RUQ Please; Complete Time: 15:45 dr5 11/26 13:52 Order name: Stone Protocol CT; Complete Time: 17:08 dr5 11/26 20:00 Order name: CONS Physician Consult EDHI 11/26 13:40 Order name: IV Saline Lock; Complete Time: 14:18 dr5 11/26 13:40 Order name: Labs collected and sent; Complete Time: 14:18 dr5 Administered Medications: 14:17 Drug: NS 0.9% IV 1000 ml IV at 1 bolus Per protocol; to be given as a bolus over 60 kj2 minutes Route: IV; Rate: 1 bolus; Site: left antecubital; 16:33 Follow up: IV Status: Completed infusion kj2 14:18 Drug: Ondansetron IVP 4 mg IVP once; over 2 minutes Route: IVP; Site: left antecubital; kj2 16:33 Follow up: Response: No adverse reaction kj2 14:18 Drug: morphine IVP or IV 4 mg IVP once over 4 mins Route: IVP; Infused Over: 4 mins; kj2 Site: left antecubital; 16:33 Follow up: Response: No adverse reaction kj2 16:31 Drug: morphine IVP or IV 4 mg IVP once over 4 mins Route: IVP; Infused Over: 4 mins; kj2 Site: left antecubital; 19:38 Follow up: Response: No adverse reaction kj2 16:31 Drug: Ondansetron IVP 4 mg IVP once; over 2 minutes Route: IVP; Site: left antecubital; kj2 19:37 Follow up: Response: No adverse reaction kj2 17:59 CANCELLED (Inappropriate at this time): calcium gluconate2 grams IVPB once over 60 dr5 mins; (mix in NS 100 mL) 18:07 Drug: NS 0.9% IV 1000 ml IV at 125 ml continuous; to be given as a bolus over 60 kj2 minutes Route: IV; Rate: 125 ml; Site: left antecubital; 19:37 Follow up: IV Status: Completed infusion; IV Intake: 1000ml kj2 18:07 Drug: Piperacillin-Tazobactam IVPB 3.375 grams IVPB once over 60 mins; (mix in NS 100 kj2 mL) Route: IVPB; Infused Over: 60 mins; Site: left antecubital; 19:37 Follow up: IV Status: Completed infusion; IV Intake: 100ml kj2 Disposition Summary: 11/26/24 17:58 Hospitalization Ordered Notes: Hospitalization Status: Inpatient Admission dr5 Provider: Cesia Snyder Location: Telemetry/MedSurg (observation) dr5 Condition: Stable dr5 Problem: new dr5 Symptoms: are unchanged dr5 Bed/Room Type: Standard dr5 Room Assignment: 206(11/26/24 20:07) vc1 Diagnosis - Cholecystitis, unspecified dr5 Forms: - Medication Reconciliation Form dr5 - SBAR form dr5 - Leadership Thank You Letter dr5 Signatures: Dispatcher [employer] EDMS Bal Simpson, RN RN ll1 Rina Crowder RN RN vc1 Vanita Braga RN RN kj2 Eyal Sanz, PURCHASING CLERK-C PURCHASING CLERK-Cdr5 Corrections: (The following items were deleted from the chart) 13:52 13:52 Abdomen Limited+US.RAD.BRZ ordered. EDMS EDMS 14:14 14:14 LAB ADD ON+C.LAB.BRZ ordered. EDMS EDMS 14:39 14:39 TEST, SERUM+SC.LAB.BRZ ordered. EDMS EDMS 17:59 17:59 Calcium Gluconate IVPB 2 grams IVPB once over 60 mins; (mix in NS 100 mL) dr5 ordered. dr5 20:07 17:58 dr5 vc1
--- NOTE | 2024-11-26 17:59 | ER ---
Nurse's Notes [facility] Name: Roxy Umaña Age: 39 yrs Sex: Female : 1985 Arrival Date: 11/26/2024 Time: 12:04 Bed 13 Private MD: Diagnosis: Cholecystitis, unspecified Presentation: 11/26 12:45 Chief complaint: Patient states: night severe upper abdominal pain that wraps ll1 around to back. - fever, + N/V. + dysuria. Coronavirus screen: Client denies travel out of the [place] in the last 14 days. At this time, the client does not indicate any symptoms associated with coronavirus-19. Ebola Screen: Patient denies travel to an Ebola-affected area in the 21 days before illness onset. Initial Sepsis Screen: Does the patient meet any 2 criteria? No. Patient's initial sepsis screen is negative. Does the patient have a suspected source of infection? No. Patient's initial sepsis screen is negative. Risk Assessment: Do you want to hurt yourself or someone else? Patient reports no desire to harm self or others. Onset of symptoms was November 24, 2024. 12:45 Method Of Arrival: Ambulatory ll1 12:45 Acuity: JULIANNA 3 ll1 RECEPTIONIST NURSE: 21:20 Not kj2 Historical: - Allergies: 12:45 Ceclor; ll1 12:45 Iodine; ll1 - PMHx: 12:45 GERD; ll1 - PSHx: 12:45 section; ll1 - Immunization history:: Adult Immunizations up to date. - Infectious Disease History:: Denies. - Social history:: Smoking status: Reported history of juuling and/or vaping. Screenin:00 [facility] ED Fall Risk Assessment (Adult) History of falling in the last 3 months, kj2 including since admission No falls in past 3 months (0 pts) Confusion or Disorientation No (0 pts) Intoxicated or Sedated No (0 pts) Impaired Gait No (0 pts) Mobility Assist Device Used No (0 pt) Altered Elimination No (0 pt) Score/Fall Risk Level 0 - 2 = Low Risk Maintained a safe environment, Hourly rounding (assess needs \T\ fall precautionary measures) done. Abuse screen: Denies threats or abuse. Denies injuries from another. Nutritional screening: No deficits noted. Tuberculosis screening: No symptoms or risk factors identified. Assessment: 13:40 Reassessment: Patient and/or family updated on plan of care and expected duration. Pain jl7 level reassessed. 14:00 General: Appears uncomfortable, Behavior is cooperative. Pain: Complains of pain in kj2 abdomen, back Pain currently is 8 out of 10 on a pain scale. Neuro: Level of Consciousness is awake, alert, obeys commands, Oriented to person, place, time, situation. Cardiovascular: Patient's skin is warm and dry. Respiratory: Airway is patent Respiratory effort is unlabored. GI: Bowel sounds Abdomen is tender to palpation X 4 quads. : Reports pain in lower back. 14:50 Reassessment: Patient appears in no apparent distress at this time. Patient and/or kj2 family updated on plan of care and expected duration. Pain level reassessed. Patient is alert, oriented x 3, equal unlabored respirations, skin warm/dry/pink. 15:55 Reassessment: Patient appears in no apparent distress at this time. Patient and/or kj2 family updated on plan of care and expected duration. Pain level reassessed. Patient is alert, oriented x 3, equal unlabored respirations, skin warm/dry/pink. 17:01 Reassessment: Patient appears in no apparent distress at this time. Patient and/or kj2 family updated on plan of care and expected duration. Pain level reassessed. Patient is alert, oriented x 3, equal unlabored respirations, skin warm/dry/pink. 18:00 Reassessment: Patient appears in no apparent distress at this time. Patient and/or kj2 family updated on plan of care and expected duration. Pain level reassessed. Patient is alert, oriented x 3, equal unlabored respirations, skin warm/dry/pink. 19:00 Reassessment: Patient appears in no apparent distress at this time. Patient and/or kj2 family updated on plan of care and expected duration. Pain level reassessed. Patient is alert, oriented x 3, equal unlabored respirations, skin warm/dry/pink. 20:00 Reassessment: Patient appears in no apparent distress at this time. Patient and/or kj2 family updated on plan of care and expected duration. Pain level reassessed. Patient is alert, oriented x 3, equal unlabored respirations, skin warm/dry/pink. 21:22 Reassessment: potassium 2.1 reported to Nicola (nurse) on 2nd floor. kj2 Vital Signs: 12:45 BP 124 / 78; Pulse 67; Resp 16; Temp 97.3; Pulse Ox 100% on R/A; Weight 83.91 kg; ll1 Height 5 ft. 7 in. ; Pain 7/10; 14:51 BP 138 / 83; Pulse 63; Resp 18; Pulse Ox 100% ; kj2 15:56 BP 140 / 80; Pulse 56; Resp 18; Pulse Ox 100% on R/A; kj2 18:00 BP 156 / 92; Pulse 66; Resp 18; Pulse Ox 100% on R/A; kj2 19:00 BP 151 / 82; Pulse 66; Resp 20; Pulse Ox 100% on R/A; kj2 20:00 BP 153 / 88; Pulse 66; Resp 20; Pulse Ox 100% on R/A; kj2 12:45 Body Mass Index 28.97 (83.91 kg, 170.18 cm) ll1 12:45 Pain Scale: Adult ll1 ED Course: 12:10 Patient arrived in ED. gl 12:14 Eyal Sanz FNP-C is PHCP. dr5 12:14 Maria Alejandra Wilson is Attending Physician. dr5 12:47 Triage completed. ll1 12:48 Arm band placed on. ll1 13:40 Patient placed in an exam room, on a stretcher. jl7 13:53 Vanita Braga, RN is Primary Nurse. kj2 13:53 Inserted saline lock: 22 gauge in left antecubital area, using aseptic technique. Blood kj2 collected. Flushed with 10 mL NS. 14:00 Patient has correct armband on for positive identification. Bed in low position. Call kj2 light in reach. Side rails up X 1. Adult w/ patient. Provided Education on: call light. 14:10 Radiology exam delayed due to test not completed at this time. sm9 15:01 US Abdomen Limited: RUQ Please In Process Unspecified. EDMS 15:04 Test, Serum Sent. kj2 15:[address] In Process Unspecified. EDMS 17:57 Cesia Snyder MD is Hospitalizing Provider. dr5 21:21 No provider procedures requiring assistance completed. Patient admitted, IV remains in kj2 place. Administered Medications: 14:17 Drug: NS 0.9% IV 1000 ml IV at 1 bolus Per protocol; to be given as a bolus over 60 kj2 minutes Route: IV; Rate: 1 bolus; Site: left antecubital; 16:33 Follow up: IV Status: Completed infusion kj2 14:18 Drug: Ondansetron IVP 4 mg IVP once; over 2 minutes Route: IVP; Site: left antecubital; kj2 16:33 Follow up: Response: No adverse reaction kj2 14:18 Drug: morphine IVP or IV 4 mg IVP once over 4 mins Route: IVP; Infused Over: 4 mins; kj2 Site: left antecubital; 16:33 Follow up: Response: No adverse reaction kj2 16:31 Drug: morphine IVP or IV 4 mg IVP once over 4 mins Route: IVP; Infused Over: 4 mins; kj2 Site: left antecubital; 19:38 Follow up: Response: No adverse reaction kj2 16:31 Drug: Ondansetron IVP 4 mg IVP once; over 2 minutes Route: IVP; Site: left antecubital; kj2 19:37 Follow up: Response: No adverse reaction kj2 17:59 CANCELLED (Inappropriate at this time): calcium gluconate2 grams IVPB once over 60 dr5 mins; (mix in NS 100 mL) 18:07 Drug: NS 0.9% IV 1000 ml IV at 125 ml continuous; to be given as a bolus over 60 kj2 minutes Route: IV; Rate: 125 ml; Site: left antecubital; 19:37 Follow up: IV Status: Completed infusion; IV Intake: 1000ml kj2 18:07 Drug: Piperacillin-Tazobactam IVPB 3.375 grams IVPB once over 60 mins; (mix in NS 100 kj2 mL) Route: IVPB; Infused Over: 60 mins; Site: left antecubital; 19:37 Follow up: IV Status: Completed infusion; IV Intake: 100ml kj2 Medication: 14:14 VIS not applicable for this client. kj2 Intake: 19:37 IV: 100ml; Total: 100ml. kj2 19:37 IV: 1000ml; Total: 1100ml. kj2 Outcome: 17:58 Decision to Hospitalize by Provider. dr5 21:21 Admitted to Med/surg accompanied by tech, via wheelchair, room 206, kj2 21:21 Condition: stable 21:22 Patient left the ED. kj2 Signatures: Dispatcher [employer] Wilbert Landers, RN RN jl7 Bal Simpson RN RN ll1 Isabella Diego 9 Vanita Braga RN RN kj2 Eyal Sanz, SENIOR DATA WAREHOUSE ARCHITECT-C SENIOR DATA WAREHOUSE ARCHITECT-Cdr5 Taya Moya, Reg Reg gl Corrections: (The following items were deleted from the chart) 18:07 18:06 Piperacillin-Tazobactam IVPB 3.375 grams IVPB in left forearm over 60 mins kj2 kj2
[2024-11-26] MEDS ORDERED: ALBUTEROL 2.5 MG/3 ML NEB SOL NEB PRN (19:54)
[2024-11-26] MEDS ORDERED: ACETAMINOPHEN 500 MG TAB PO PRN (19:54)
[2024-11-26] MEDS ORDERED: ONDANSETRON 4 MG/2 ML VIAL IV PRN (19:54)
--- NOTE | 2024-11-26 19:54 | P.HP ---
Certification for Inpatient With expected LOS: >2 Midnights Patient will require the following post-hospital care: None Practitioner: I am a practitioner with admitting privileges, knowledge of patient current condition, hospital course, and medical plan of care. Services: Services provided to patient in accordance with Admission requirements found in Title 42 Section 412.3 of the Code of Federal Regulations Patient History Date of Service: 11/26/24 Reason for admission: Right upper quadrant abdominal pain History of Present Illness: 39-year-old female with no past medical history who presented with right upper quadrant abdominal pain since the last 1 day, rated at about 6-7 out of 10, associated with nausea and decreased p.o. intake. She states she had constipation for 5 days prior she took a laxative yesterday had diarrhea earlier this morning. Pain restarted yesterday continued even after the diarrhea. She denies any fever or chills she denies any prior history of hypertension Arrival in the ED vital signs were stable mild elevated blood pressure in the 150s over 80s, nontachycardic or afebrile, laboratory workup showed leukocytosis at 13,000 with 82% neutrophilia, BMP was unremarkable. CT of the abdomen and pelvis shows evidence of 1.8 mm calculus at the gallbladder at late with Porter cholecystic fluid suggestive of acute cholecystitis. Ultrasound of the abdomen showed distended gallbladder but no evidence of cholecystitis. General surgery Dr. Georges was discussed with and recommended admission. Patient was started on antibiotics. Allergies cefaclor [From [facility]] Allergy (Verified 12/08/23 04:57) Hives/Rash iodine Allergy (Verified 12/08/23 04:57) Nausea/Vomiting Home Medications: Ciprofloxacin HCl [Cipro 500 MG Tablet] 500 mg PO BID 7 Days #14 tab 12/08/23 Fluconazole [Diflucan] 100 mg PO DAILY #3 tab 12/08/23 Ibuprofen 400 mg PO BID PRN 7 Days #14 tab 12/08/23 - Past Medical/Surgical History Has patient received pneumonia vaccine in the past: No Diabetic: No -: section x2 -: R ACL repair - Social History Smoking Status: Never smoker Smoking therapy provided: No Patient receptive to therapy: No Alcohol use: No CD- Drugs: No Caffeine use: No Place of Residence: Home Review of Systems Gastrointestinal: Nausea, Abdominal Pain Physical Examination - Physical Exam General: Alert, In no apparent distress, Oriented x3 HEENT: Atraumatic, Normocephalic, PERRLA Neck: Supple, 2+ carotid pulse no bruit, JVD not distended Respiratory: Clear to auscultation bilaterally, Normal air movement Cardiovascular: No edema, Normal pulses, Regular rate/rhythm, Normal S1 S2 Gastrointestinal: Normal bowel sounds, Soft and benign, Non-distended, No rebound, No guarding, Tenderness (RUQ) Musculoskeletal: No clubbing, No swelling Neurological: Normal gait, Normal speech, Normal strength at 5/5 x4 extr, Sensation intact, Cranial nerves 3-12 intact - Studies Laboratory Data (last 24 hrs) 11/26/24 11/26/24 13:50 13:50 WBC 13.20 H Hgb 13.4 Hct 39.8 Plt Count 256 Sodium 141 Potassium 3.5 BUN 8 Creatinine 0.79 Glucose 107 H Total Bilirubin 1.5 H AST < 10 L ALT 20 Alkaline Phosphatase 81 Lipase 26 Assessment and Plan - Problems (Diagnosis) (1) Acute cholecystitis due to biliary calculus Current Visit: Yes Status: Acute - Plan Acute Cholecystitiswill admit to inpatient General surgery consult in a.m. Start empirical antibiotic with cefepime Pain control Gentle IV fluid Start Lovenox for DVT prophylaxis Monitor blood pressure IV hydralazine as needed - Advance Directives Does patient have a Living Will: No Does patient have a Durable POA for Healthcare: No
[2024-11-26] MEDS: D5 0.9 NS 1,000 ML IV SCH (20:00)
[2024-11-26] MEDS ORDERED: MORPHINE 2 MG/ML SYR ONE (20:43)
[2024-11-26] MEDS: MORPHINE 2 MG/ML SYR IV PRN (20:51)
[2024-11-26] MEDS ORDERED: D5 0.9 NS 1,000 ML IV ONE (20:53)
[2024-11-26] MEDS: FAMOTIDINE 20 MG/2 ML VIAL IV SCH (21:37)
[2024-11-26 22:16] VITALS: BMI 28.8
[2024-11-26] MEDS: HYDRALAZINE HCL 20 MG/ML VIAL IV PRN (22:35)
[2024-11-27] MEDS: AMPICILLIN/SULBACT 1.5 GM in NA CHLORIDE 0.9% 100 ML IVPB SCH (01:16)
[2024-11-27 03:04] LABS: Urine Microscopic Reflex YN NO UMIC
[2024-11-27 04:41] LABS: Absolute Lymphocytes (CBC) 1.2 K/uL (0.7-4.9); Hematocrit 34.0 % (36.0-45.0); Hemoglobin 12.1 g/dL (12.0-15.0); MCH 31.5 pg (27.0-35.0); MCHC 35.5 g/dL (32.0-36.0); MCV 88.7 fL (80-100); MPV 9.3 fL (7.6-11.3); Nucleated RBC Absolute Count 0.0 (0-0); Nucleated Red Blood Cells % 0.0 % (0-0); RBC Red Blood Cell Count 3.84 M/uL (3.86-4.86); White Blood Count 13.70 thou/uL (4.3-10.9)
[2024-11-27 04:46] LABS: PT Prothrombin Time 14.2 SECONDS (10-13.0); PTT, Activated Partial Thromb 29.1 SECONDS (27.2-37.4); Protime INR 1.27
[2024-11-27 05:01] LABS: ALT/SGPT 17 U/L (13-56); Albumin 3.0 g/dL (3.4-5.0); Albumin/Globulin Ratio 0.9 (1.1-1.8); Alkaline Phosphatase 72 U/L (45-117); Anion Gap 7.6 mEq/L (5.0-15.0); BUN Blood Urea Nitrogen 5 mg/dL (7-18); Globulin 3.4 g/dL (2.3-3.5); Glucose Level 132 mg/dL (74-106); HDL Cholesterol 70 mg/dL (40-60); LDL Cholesterol, Calculated 39 mg/dL (<130); LDL Cholesterol,Calc NonReport 39; Potassium 3.6 mEq/L (3.5-5.1)
[2024-11-27 05:09] LABS: AST/SGOT < 10 U/L (15-37)
[2024-11-27] MEDS ORDERED: ALBUTEROL 2.5 MG/3 ML NEB SOL NEB PRN (08:05)
[2024-11-27] MEDS: ACETAMINOPHEN 325 MG TABLET PO ONE (08:07)
[2024-11-27] MEDS: TAMSULOSIN 0.4 MG SR CAP PO SCH (08:08)
[2024-11-27] MEDS: ENOXAPARIN 40 MG/0.4 ML SQ SCH (08:08)
[2024-11-27] MEDS ORDERED: SUCCINYLCHOLINE 20 MG/ML (10 ML) IV ONE (09:20)
[2024-11-27] MEDS ORDERED: FENTANYL CITR 100 MCG/2 ML ONE ×2 (09:20→10:27)
[2024-11-27] MEDS ORDERED: ROCURONIUM 50 MG/5 ML VIAL IV ONE (09:20)
[2024-11-27] MEDS ORDERED: LIDOCAINE 2% MPF 5 ML VIAL ONE (09:20)
[2024-11-27] MEDS ORDERED: MIDAZOLAM HCL 2 MG/2 ML INJ ONE (09:20)
[2024-11-27] MEDS ORDERED: ONDANSETRON 4 MG/2 ML VIAL ONE (09:25)
[2024-11-27] MEDS: Ringers Lactate 1,000 ML IV ONE (09:45)
[2024-11-27] MEDS: SUGAMMADEX SODIUM 200 MG/2 ML VIAL IV ONE (10:28)
[2024-11-27] MEDS: LIDOCAINE HCL/EPINEPHRINE 20 ML MDV ONE (10:32)
--- NOTE | 2024-11-27 11:14 | P.OP ---
Preoperative diagnosis: Cholecystitis with Cholelithiasis Postoperative diagnosis: Cholecystitis with Cholelithiasis Primary procedure: Laparoscopic Cholecystectomy with ICG Cholangiography Anesthesia: GETA + Local Estimated blood loss: <10cc Specimen: Gallbladder Findings: Cholecystitis with Cholelithiasis, distended GB, adhesions, uterus adhesion Complications: None Implants: Porfirio hemostatic powder Transferred to: Recovery Room Condition: Good
--- NOTE | 2024-11-27 11:59 | CON ---
Date of Consultation: 11/27/2024 Brief History Of Present Illness: The patient is a 39-year-old woman who comes in with approximately 1-week history of abdominal pain beginning in the epigastrium with radiation to the right upper quad rant, that focused primarily in the right upper quadrant with radiation through to the back in that a scotty. She has not had similar episodes before in the past. She is unsure of the p.o. intake that cau ses symptoms to occur; however, she does admit to eating mostly junk food by her description. She melendez d some constipation, took some laxatives, and had diarrhea after the laxative use, but the pain had b een intermittent and getting significantly worse. As such, she came to the emergency room with the jeri colunga-stated complaints. There are no sick contacts. No recent food exposures. No recent travel. N o one in the house has been eating the similar food, has been complaining of any symptoms as well. Past Medical History: Significant for hypertension on one occasion. 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 Allergies: TO AND IODINE. Home Medications: None. However, she has used Cipro, Diflucan, and ibuprofen in the past. Social History: She denies smoking, alcohol, or recreational drug use. Review of Systems: Ten-point review of systems other than HPI, denies. Physical Examination: General: At the time of my examination; she is awake, alert, oriented. Psychiatric: Appropriate, conversive. HEENT: She is normocephalic. Sclerae anicteric. Mucous membranes are moist. Oropharynx clear. Neck: Supple without JVD. Chest: Normal to expansion and excursion. Cardiovascular: Regular rate and rhythm. Pulmonary: Clear to auscultation bilaterally. Abdomen: Soft with positive right upper quadrant tenderness to palpation. Positive Johnston sign. Po sitive guarding in the right upper quadrant. Extremities: No clubbing, cyanosis, or edema. Skin: Warm and dry. Laboratory Data: Reveals white blood cell count of 13.7, hemoglobin is 12.1, hematocrit 34.0, platel et count was 241. Her neutrophils are 83%. Her PT 14.2, INR 1.27, PTT is 29.1. Her sodium 139, pot assium 3.6, chloride 109, carbon dioxide is 26, BUN 5, creatinine is 0.62, glucose is 132. Her total bilirubin was 1.5, on admission at 1.3. AST is less than 10, ALT 17, alkaline phosphatase is 72. H er lipase was 26. Her urine test was negative. Urinalysis was also negative. She had jasmyn ging performed, which included an ultrasound and a CT. The official interpretation from the ultrasou nd was gallbladder is moderately distended with a single gallstone. CT scan was officially read as 1 .8 cm calculus of the neck of the gallbladder, moderately distended gallbladder with mild pericholecy stic fluid, nonspecific air-fluid levels in nondistended central abdominal loops could relate to diar rheal state. Mild free fluid in the pelvis, nonspecific, could be physiologic. Additional findings; she has a 4.2 x 3.2 ovoid hyperdense right pelvic lesion, stable, may represent a complex ovarian cy st or pedunculated fibroid. Assessment And Plan: This is a 39-year-old woman who presents with signs and symptoms of acute calcu lous cholecystitis. 1. IV fluid hydration. 2. Antibiotic coverage. 3. I explained the risks, benefits, and alternatives of laparoscopic possible open cholecystectomy wi th Indocyanine green cholangiography, possible contrast cholangiography including, but not limited to bleeding, infection, damage to surrounding tissues, need for further operative procedures, injury to internal organs including, but not limited to bile duct injury, intestinal injury, blood clots, hear t attack, stroke, other unforeseen complications in a perioperative period. The patient displayed understanding of above-stated plan and agreed to pr oceed as indicated. TERRANCE/SUKH Voice ID: [id number] Report ID: [id number]
[2024-11-27 12:14] VITALS: O2SAT 95
[2024-11-27] MEDS: HYDROCODONE/APAP 5/325 MG TAB PO PRN (12:15)
--- NOTE | 2024-11-27 13:52 | P.PN ---
Subjective Date of Service: 11/27/24 Chief Complaint: Right upper quadrant abdominal pain Status postcholecystectomy today. No recorded fever. Physical Examination - Vital Signs Temperature: 97.5 F Blood Pressure: 137/64 Pulse: 93 Respirations: 18 Pulse Ox (%): 99 - Studies Laboratory Data (last 24 hrs) 11/26/24 11/26/24 13:50 13:50 WBC 13.20 H Hgb 13.4 Hct 39.8 Plt Count 256 Sodium 141 Potassium 3.5 BUN 8 Creatinine 0.79 Glucose 107 H Total Bilirubin 1.5 H AST < 10 L ALT 20 Alkaline Phosphatase 81 Lipase 26 Assessment And Plan - Plan Physical examination General: Alert and oriented x3, NAD, HEENT: Conjunctiva not pale, anicteric sclera Neck: Supple, no elevated JVD Heart: Heart sounds 1 and 2 normal, regular rhythm, normal rate, no pedal edema Lungs: Clear to auscultation bilaterally, adequate breath sounds bilaterally, no rhonchi or crackles. Abdomen: Soft, nondistended, normal bowel sounds. Extremities: No tenderness, no deformity Skin: Normal skin turgor, no rash, no nodules or ulcers. Neuro: No focal motor deficit. Normal speech. Psychiatry: Normal mood, no agitation. Diagnosis Acute calculus cholecystitis Plan: Patient seen and evaluated by general surgery Dr. Mcintyre Status post cholecystectomy today Continue empiric IV antibiotics Analgesics as needed. General surgery Dr. Mcintyre to follow. DVT prophylaxis: Lovenox
--- NOTE | 2024-11-27 22:28 | OP ---
Date of Procedure: 11/27/2024 Surgeon: Choco Mcintyre MD, Preoperative Diagnosis: Cholecystitis with cholelithiasis. Postoperative Diagnosis: Cholecystitis with cholelithiasis. Procedure Performed: Laparoscopic cholecystectomy with indocyanine green cholangiography. Anesthesia: General endotracheal plus local 1% lidocaine. Estimated Blood Loss: 2 cc. Specimen: Gallbladder. Findings: 1. Cholecystitis with cholelithiasis. 2. Distended gallbladder. 3. Adhesions to the anterior surface of the gallbladder from the omentum. 4. Short cystic duct. 5. Uterus adhesions to the anterior abdominal wall. Complications: None. Implants: Porfirio hemostatic powder. The patient was transferred to recovery room in good condition. Procedure In Detail: After informed consent was obtained, the patient was brought to the operating r oom, prepped and draped in usual sterile fashion. After adequate anesthesia was achieved, anesthetiz ed an area in the supraumbilical position down to subcutaneous tissues. 5 mm 0-degree optical trocar was introduced into the abdomen without incident or complication. Insufflation was obtained to 15 m mHg at this time. There was no injury to vital structures upon entry into the abdomen. Three additi onal trocars were placed, one in the epigastrium, one in the right upper quadrant, and one in the rig ht lower quadrant. All of these were similarly anesthetized, sharply incised. 5 mm trocars were rosa maribell under direct vision without incident or complication. The umbilical trocar was then upsized to 1 2 mm under direct vision without incident or complication. The patient was positioned in head up, ri ght-side up position. Ratcheted graspers were used to grasp the patient's gallbladder, placed toward s the patient's right shoulder. Dissection continued down the Lupis pouch of the gallbladder to d issect out 2 structures identified as both cystic duct and cystic artery. A critical view of safety was obtained at this point. However, the cystic duct was quite short and visualization was suboptima l due to the decreased efficacy of the indocyanine green when the indocyanine green cholangiography w as performed and did show lightening of the cystic duct and common duct confluence; however, it was s hort at this point and there were significant scar tissue and inflammatory change precluding an optim al visualization. However, the critical view of safety was obtained, identifying both the cystic barbara t and cystic artery. After this was performed, I placed double titanium clips on the proximal side a nd singly on the distal side of both cystic duct and cystic artery, and ligated these structures betw luzmarian Endo Ayden. At this point, I removed the gallbladder from the hepatic fossa. There was a small accessory branch of an artery feeding this area, which was encircled and clipped doubly on the proxi mal side and singly on the distal side. Endo Ayden ligated the structure, which came off the medial aspect of the hepatic fossa, which was visualized during the dissection of the gallbladder off the h epatic fossa. It was on the lower 20% of the subhepatic space/gallbladder bed. At this point, the g allbladder was removed from the hepatic fossa, sent off for pathologic examination. Of note, the gal lbladder did require decompression with the decompression needle at the initiation of the procedure d ue to inability to grasp it due to significant distention. There was a stone impacted in the gallbla dder neck, which was unable to be manipulated out of the field during surgery despite multiple attemp ts. After the gallbladder was placed in Endo Catch bag and removed through the umbilical trocar, the abdomen was re-insufflated. The area was copiously irrigated and suctioned out completely dry. I p erformed extensive hemostasis by fulguration of the hepatic fossa as there was inflammatory change in the area and some oozing type bleeding. This was controlled with electrocautery. The area was copi ously irrigated and inspected under desufflation pressure, which showed no evidence of bleeding at th is point. I suctioned out the remaining effluent. Indocyanine green cholangiography was performed a t this point and showed no leakage of bile. At this point, the clips were found to be in good positi on. At this point, I irrigated the area once again. I desufflated the abdomen and inspected the are a. No hemostatic measures required. At this point, I sprayed Porfirio hemostatic powder into the subh epatic space over the gallbladder bed and placed the omentum down in this position. The patient was positioned back in neutral position. Remaining effluent was suctioned out and the abdomen was decomp ressed at this point. I then reinflated the abdomen once again. No additional hemostatic measures r equired. At this point, I closed the 12 mm trocar site with a Shaun-Darek suture passer with 0 V icryl in interrupted fashion with good approximation of tissues. The abdomen was then desufflated un olesya direct vision without incident or complication. All remaining trocars were removed. All skin in cisions were then copiously irrigated and closed with a 4-0 Monocryl in a running fashion. Dermabond was placed over the top. The patient tolerated the procedure without incident or complication, and transferred to PACU in good condition. All counts were correct at the end of the case. TERRANCE/SUKH Voice ID: [id number] Report ID: [id number]
[2024-11-28 04:48] LABS: Absolute Lymphocytes (CBC) 1.3 K/uL (0.7-4.9); Hematocrit 32.3 % (36.0-45.0); Hemoglobin 11.3 g/dL (12.0-15.0); MCH 31.3 pg (27.0-35.0); MCHC 35.1 g/dL (32.0-36.0); MCV 89.1 fL (80-100); MPV 9.7 fL (7.6-11.3); Nucleated RBC Absolute Count 0.0 (0-0); Nucleated Red Blood Cells % 0.0 % (0-0); RBC Red Blood Cell Count 3.62 M/uL (3.86-4.86); White Blood Count 12.60 thou/uL (4.3-10.9)
[2024-11-28 05:01] LABS: ALT/SGPT 44.0 U/L (13-56); AST/SGOT 22.0 U/L (15-37); Albumin 2.7 g/dL (3.4-5.0); Albumin/Globulin Ratio 0.8 (1.1-1.8); Alkaline Phosphatase 72.0 U/L (45-117); Anion Gap 5.4 mEq/L (5.0-15.0); BUN Blood Urea Nitrogen 3.0 mg/dL (7-18); Globulin 3.2 g/dL (2.3-3.5); Glucose Level 136.0 mg/dL (74-106); Potassium 3.4 mEq/L (3.5-5.1)
[2024-11-28 08:14] VITALS: BP 115/65; TEMP 99
[2024-11-28] MEDS: HYDROCODONE/APAP 10/325 TAB PO PRN (09:11)
--- NOTE | 2024-11-28 10:21 | P.DS ---
Admission Date: 11/26/24 Discharge Date: 11/28/24 Disposition: ROUTINE DISCHARGE Discharge Condition: GOOD Reason for Admission: Right upper quadrant abdominal pain Brief History of Present Illness: 39-year-old female with no past medical history who presented with right upper quadrant abdominal pain of 1 day duration. Symptoms preceded by constipation followed by diarrhea after patient took some laxatives. In the ED patient noted to have leukocytosis but did not meet criteria for sepsis. CT of the abdomen and pelvis shows evidence of 1.8 mm calculus in the gallbladder and pericholecystic fluid suggestive of acute cholecystitis. Ultrasound of the abdomen showed distended gallbladder. General surgery Dr. Geogres was informed who recommended admission for further management. Hospital Course: Acute cholecystitis status post lap cholecystectomy Patient admitted to the medical floor, started on IV Unasyn. She was evaluated by general surgery Dr. Mcintyre who performed laparoscopic cholecystectomy and ICG. Patient was monitored overnight on antibiotics. She has tolerated regular diet, patient is ambulatory with stable vitals. Patient deemed stable for discharge per Dr. Mcintyre. She is discharged with Augmentin. She is also discharged with Delia as needed for pain. Follow-up with Dr. Mcintyre within 1 week recommended. Vital Signs/Physical Exam: Temp Pulse Resp BP Pulse Ox 99.0 F 79 16 115/65 97 11/28/24 08:00 11/28/24 08:00 11/28/24 08:00 11/28/24 08:00 11/28/24 08:00 General: Alert, In no apparent distress, Oriented x3 HEENT: Mucous membr. moist/pink Neck: Supple, JVD not distended Respiratory: Clear to auscultation bilaterally, Normal air movement Cardiovascular: No edema, Regular rate/rhythm, Normal S1 S2 Gastrointestinal: Soft and benign, Non-distended, Other (Clean trocar wounds) Musculoskeletal: No swelling Integumentary: No rashes Laboratory Data at Discharge: WBC 12.60 thou/uL (4.3-10.9) H 11/28/24 04:18 Hgb 11.3 g/dL (12.0-15.0) L 11/28/24 04:18 Hct 32.3 % (36.0-45.0) L 11/28/24 04:18 Plt Count 211 thou/uL (152-406) 11/28/24 04:18 PT 14.2 SECONDS (10-13.0) H 11/27/24 04:21 INR 1.27 11/27/24 04:21 APTT 29.1 SECONDS (27.2-37.4) 11/27/24 04:21 Sodium 140 mEq/L (136-145) 11/28/24 04:18 Potassium 3.4 mEq/L (3.5-5.1) L 11/28/24 04:18 BUN 3 mg/dL (7-18) L 11/28/24 04:18 Creatinine 0.67 mg/dL (0.55-1.02) 11/28/24 04:18 Glucose 136 mg/dL (74-106) H 11/28/24 04:18 Total Bilirubin 1.3 mg/dL (0.2-1.0) H 11/28/24 04:18 AST 22 U/L (15-37) 11/28/24 04:18 ALT 44 U/L (13-56) 11/28/24 04:18 Alkaline Phosphatase 72 U/L (45-117) 11/28/24 04:18 Triglycerides 39 mg/dL (<150) 11/27/24 04:21 Cholesterol 117 mg/dL (<200) 11/27/24 04:21 HDL Cholesterol 70 mg/dL (40-60) H 11/27/24 04:21 Cholesterol/HDL Ratio 1.67 11/27/24 04:21 Lipase 26 U/L (13-75) 11/26/24 13:50 Home Medications: Ondansetron [Zofran (Odt)*] 1 tab PO PRN 11/27/24 Pantoprazole Sodium [Protonix] 1 tab PO DAILY 11/27/24 Tamsulosin HCl [Flomax] 1 cap PO DAILY 11/27/24 Amox/Clavulanate [Augmentin 875-125 Tab] 1 each PO BID #14 tab 11/28/24 Hydrocodone 10/APAP 325 [Delia 10/325*] 1 tab PO Q6H PRN #20 tab 11/28/24 New Medications: Amox/Clavulanate [Augmentin 875-125 Tab] 1 each PO BID #14 tab Hydrocodone 10/APAP 325 [Delia 10/325*] 1 tab PO Q6H PRN #20 tab PRN Reason: Pain Scale 5-7 (Moderate) Diet: [place] Activity: Ad laura Followup: Choco Mcintyre MD [ACTIVE - CAN ADMIT] - 1-2 Weeks NONE,NONE [Primary Care Provider] - Time spent managing pt's care (in minutes): 33
[2024-11-28] MEDS: POTASSIUM CL SA 10 MEQ TAB PO ONE (10:43)
== END 2024-11-28 11:20 | disposition home or self-care (01) | DRG 419 ==
LOC: ER 12:04 → 2ND 19:54
PROVIDERS: ADMIT Internal Medicine; ATTEND Internal Medicine
PROC: BF121ZZ Fluoroscopy of Gallbladder using Low Osmolar Contrast (ICD-10-PCS; 2024-11-27)
PROC: 0FT44ZZ Resection of Gallbladder, Percutaneous Endoscopic Approach (ICD-10-PCS; principal; 2024-11-27 09:30)
DX: K80.00 Calculus of gallbladder with acute cholecystitis without obstruction (principal); K59.00 Constipation, unspecified; K21.9 Gastro-esophageal reflux disease without esophagitis; Z79.899 Other long term (current) drug therapy
CPT/HCPCS: 36415; 74176; 76377; 76705; 80053; 80061; 81003; 81025; 83690; 84703; 85025; 85610; 85730; 88304; 96361; 96365; 96375; 99285; J0295; J0330; J0360; J1650; J2003; J2250; J2270; J2405; J2543; J2704; J3010; J7030; J7042; J7120